=== PATIENT | male | born 1965 | race Caucasian/White ===

== ENCOUNTER → 2020-09-12 11:13 | Outpatient (BNVA) | payer BC, SELFPAY | PROVIDERS: Visit Provider Nurse Practitioner Family | DX: N39.0 Urinary tract infection, site not specified (principal) | CPT/HCPCS: 80053; 81003; 87077; 87086; 87184 ==

== ENCOUNTER → 2021-03-19 11:03 | Outpatient (BNVA) | payer BC, SELFPAY | PROVIDERS: Visit Provider Nurse Practitioner Family | DX: S16.1XXA Strain of muscle, fascia and tendon at neck level, initial encounter (principal); R30.0 Dysuria; J01.90 Acute sinusitis, unspecified; B96.89 Other specified bacterial agents as the cause of diseases classified elsewhere; R73.09 Other abnormal glucose; R53.83 Other fatigue; Z12.5 Encounter for screening for malignant neoplasm of prostate; E78.2 Mixed hyperlipidemia; N39.0 Urinary tract infection, site not specified; X58.XXXA Exposure to other specified factors, initial encounter | CPT/HCPCS: 81003 ==

== ENCOUNTER → 2021-03-21 08:09 | Outpatient (BNVA) | payer BC, SELFPAY | PROVIDERS: PCP Nurse Practitioner Family; Visit Provider Nurse Practitioner Family | DX: E78.2 Mixed hyperlipidemia (principal); R73.09 Other abnormal glucose; E55.9 Vitamin D deficiency, unspecified; R53.83 Other fatigue; Z12.5 Encounter for screening for malignant neoplasm of prostate | CPT/HCPCS: 80053; 80061; 81003; 82306; 83036; 84439; 84443; 85025; G0103 ==

== ENCOUNTER 2021-12-15 11:29 | Outpatient (CLI) | payer BC, SELFPAY ==
[2021-12-15 12:09] LABS: Basophils % 0.3 %; Eosinophils # 0.1 10^3/uL (0.0-0.8); Hematocrit 46.7 % (42.0-52.0); Lymphocytes # 1.5 10^3/uL (0.8-4.8); Lymphocytes % 25.2 %; Mean Corpuscular HGB Conc 34.3 g/dL (30.0-36.0); Mean Corpuscular Hemoglobin 29.9 pg (28.0-34.0); Mean Corpuscular Volume 87.1 fl (80-94); Mean Platelet Volume 9.6 fL (7.4-10.4); Monocytes # 0.3 10^3/uL (0.2-0.9); Monocytes % 4.4 %; Neutrophils # 4.14 10^3/uL (1.8-7.7); Neutrophils % 67.8 %; Nucleated Red Blood Cells % 0 %; Platelet Count 282 10^3/cmm (130-400); Red Blood Count 5.36 10^6/uL (4.1-5.3); Red Cell Distribution Width 12.4 % (12.1-15.1); White Blood Count 6.1 10^3/uL (4.0-10.0)
[2021-12-15 12:26] LABS: Alanine Aminotransferase 29 U/L (0-41); Albumin Level 4.6 g/dL (3.5-5.2); Alkaline Phosphatase 104 IU/L (40-130); Anion Gap 14.4 (5-19); Aspartate Amino Transferase 21 U/L (0-40); Blood Urea Nitrogen 13 mg/dL (6-20); C Reactive Protein 21.7 mg/L (0.0-4.9); Calcium 9.6 mg/dL (8.5-10.5); Carbon Dioxide 24 mmol/L (22-29); Chloride 100 mmol/L (98-107); Globulin 3.5 g/dL (1.3-4.6); Glomerular Filtration Rate 99.3 mL/min (90-130); Glucose 107 mg/dL (65-115); Osmolality Calculated 279 mOsm/kg (285-295); Potassium 4.4 mmol/L (3.5-5.1); Sodium 134 mmol/L (136-145); Total Bilirubin 0.6 mg/dL (0.15-1.2); Total Protein 8.1 g/dL (6.6-8.7); Uric Acid 6.1 mg/dL (3.4-7.0)
[2021-12-17 16:17] LABS: Anti-Nuclear Antibody Pattern Nuclear, Homogeneous; Anti-Nuclear Antibody Screen POSITIVE (NEGATIVE)
[2021-12-22 15:18] LABS: Lyme AB Screen <0.90 index
[2021-12-24 16:33] LABS: Francisella Tularensis DA 1:40 titer
== END 2021-12-15 11:30 | disposition home or self-care (01) ==
LOC: LAB 11:40
PROVIDERS: PCP Nurse Practitioner Family; Visit Provider Nurse Practitioner Family
DX: I10 Essential (primary) hypertension (principal); M25.50 Pain in unspecified joint
CPT/HCPCS: 80053; 84550; 85025; 86000; 86038; 86140; 86431; 86618; 86666; 86757

== ENCOUNTER 2022-01-01 14:18 | Outpatient (CLI) | payer BC, SELFPAY ==
--- NOTE | 2022-01-01 14:31 | XR_ITS ---
WS: [email or web address] Left hand, 2 views, 01/01/2022 Clinical Data: R76.8 - Other specified abnormal immunological findings i... Comparison: None. Findings: No fractures or dislocations are seen. The soft tissues are unremarkable. The joint spaces are normal No periarticular demineralization or calcifications are seen. XR/XR hand LT 2V [id number] Impression: Negative left hand.
--- NOTE | 2022-01-01 14:31 | XR_ITS ---
WS: [email or web address] Right hand, 2 views, 01/01/2022 Clinical Data: R76.8 - Other specified abnormal immunological findings i... Comparison: None. Findings: No fractures or dislocations are seen. The soft tissues are unremarkable. There is osteoa rthritis of the right first MCP joint. Periarticular demineralization or calcifications are not seen. XR/XR hand RT 2V [id number] Impression: 1. 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 2. Otherwise negative right hand.
--- NOTE | 2022-01-01 14:31 | XR_ITS ---
WS: [email or web address] Sacroiliac joints, 3 views, 01/01/2022 Clinical Data: L40.9 - Psoriasis, unspecified Comparison: None. Findings: The SI joints are normal in width. No erosion, sclerosis or destruction is seen. There are no fractur es or dislocations. The adjacent visualized pelvis and hips are unremarkable. XR/XR sacroiliac jts m 3V [id number] Impression: Negative SI joints.
== END 2022-01-01 14:19 | disposition home or self-care (01) ==
LOC: RAD 14:20
PROVIDERS: PCP Nurse Practitioner Family; Visit Provider Internal Medicine
DX: R76.8 Other specified abnormal immunological findings in serum (principal); L40.9 Psoriasis, unspecified; M19.041 Primary osteoarthritis, right hand
CPT/HCPCS: 72202; 73120; 81001; 82550; 82565; 83516; 84443; 85651; 86140; 86160; 86162; 86200; 86235; 86255; 86376; 86431; 86480; 86704; 86803; 87340

== ENCOUNTER 2022-01-08 15:15 | Outpatient (CLI) | payer BC, SELFPAY ==
--- NOTE | 2022-01-08 15:43 | XR_ITS ---
WS: [email or web address] Chest 2 views, 01/09/2022 Clinical Data: R05.9 - Cough, unspecified Comparison: None. Findings: No nodules, masses or effusions are seen. The heart is normal. The pulmonary vascularity is not increased. No pneumonia or pneumothorax is seen. XR/XR chest 2V* [id number] Impression: Negative chest.
[2022-01-08 16:18] LABS: Basophils % 0.4 %; Eosinophils % 0.1 %; Hematocrit 44.8 % (42.0-52.0); Lymphocytes # 1.1 10^3/uL (0.8-4.8); Lymphocytes % 16.2 %; Mean Corpuscular HGB Conc 33.5 g/dL (30.0-36.0); Mean Corpuscular Hemoglobin 29.4 pg (28.0-34.0); Mean Corpuscular Volume 87.7 fl (80-94); Mean Platelet Volume 10.2 fL (7.4-10.4); Monocytes # 0.3 10^3/uL (0.2-0.9); Neutrophils % 78.3 %; Nucleated Red Blood Cells % 0 %; Platelet Count 160 10^3/cmm (130-400); Red Blood Count 5.11 10^6/uL (4.1-5.3); Red Cell Distribution Width 12.5 % (12.1-15.1); White Blood Count 6.8 10^3/uL (4.0-10.0)
[2022-01-08 17:10] LABS: Alanine Aminotransferase 30 U/L (0-41); Albumin Level 4.1 g/dL (3.5-5.2); Alkaline Phosphatase 80 IU/L (40-130); Anion Gap 19.3 (5-19); Aspartate Amino Transferase 17 U/L (0-40); Blood Urea Nitrogen 25 mg/dL (6-20); Calcium 9.6 mg/dL (8.5-10.5); Carbon Dioxide 22 mmol/L (22-29); Chloride 98 mmol/L (98-107); Globulin 3.2 g/dL (1.3-4.6); Glomerular Filtration Rate 68.8 mL/min (90-130); Glucose 260 mg/dL (65-115); Osmolality Calculated 293 mOsm/kg (285-295); Potassium 4.3 mmol/L (3.5-5.1); Sodium 135 mmol/L (136-145); Total Bilirubin 0.6 mg/dL (0.15-1.2); Total Protein 7.3 g/dL (6.6-8.7)
== END 2022-01-08 15:16 | disposition home or self-care (01) ==
PROVIDERS: PCP Nurse Practitioner Family; Visit Provider Nurse Practitioner Family
DX: R50.9 Fever, unspecified (principal); R05.9 Cough, unspecified
CPT/HCPCS: 36415; 71046; 80053; 81000; 85025; 87086

== ENCOUNTER 2022-01-08 21:26 | Emergency (ER) | payer BC, SELFPAY ==
[2022-01-08 21:35] VITALS: BP 114/80; PULSE 101; RESP 22; TEMP 36.9; O2SAT 95; BMI 27.9
--- NOTE | 2022-01-08 21:55 | ED_ITS ---
HPI - Fever General: Chief Complaint: Fever Stated Complaint: Fever\Joint Locking Up Time Seen by Provider: 01/08/22 21:40 Source: patient Mode of arrival: ambulatory Limitations: no limitations History of Present Illness: 56-year-old male who states he has been having intermittent fevers over the last 6 to 7 days. Currently being worked up for rheumatology disease he had recently had a positive LOIS and states that the painter and decorator last week told him he thought he may have polymyalgia rheumatica. He states he is currently on a steroid taper from his joint pain his hands have been improving he had x-rays of the hands and hips last week they were normal had a chest x-ray today, blood work today from his PCP for his ongoing fever and its all normal he states that tonight he spiked fever 102 is afebrile here. He denies any cough states he has generalized body pain denies headache currently. Associated symptoms: Reports extremity pain; Deny abdominal pain, chest pain, diarrhea, dysuria, headache(s), nausea or vomiting Review of Systems Const: Reports: fever(s) and body aches Eyes: Denies: blurry vision or eye discomfort ENMT: Denies: throat pain or dental pain Card: Denies: chest pain Resp: Denies: dyspnea GI: Denies: abdominal pain, nausea, vomiting or diarrhea : Denies: dysuria Musc: Reports: extremity pain, joint pain and joint swelling Skin/Breast: Denies: rash Neuro: Denies: headache(s) Psych: Denies: depression Chuckie/Lymph: Denies: easy bruising All/Imm: Denies: urticaria PFSH ED PFSH: Medical History Acute bacterial sinusitis Bacterial conjunctivitis Chronic conjunctivitis Elevated hemoglobin A1c Fatigue H/O herpes labialis H/O tularemia Mixed hyperlipidemia Neck strain Prostate cancer screening Urinary tract infection Vision changes Vitamin D deficiency Family History Mother Lupus Other CAD (coronary artery disease) Cancer Diabetes Heart attack Denies family history of Rheumatoid arthritis Hyperlipidemia Chronic kidney disease (CKD) Hypertension Stroke Social History Smoking and tobacco status: never smoked Alcohol intake: never History of recent travel: No Physical Exam Const: COMMON NORMALS: no acute distress, patient oriented x3 and healthy appearing HENMT: COMMON NORMALS: normocephalic and atraumatic HEAD & SCALP: normocephalic and atraumatic Eye: COMMON NORMALS: Equal, round and reactive pupils present and EOMs intact bilaterally PUPIL: Yes Equal, round and reactive pupils present Neck/C-Spine: COMMON NORMALS: full ROM and supple Chest: COMMONS NORMALS: normal inspection of the chest and normal palpation of entire chest wall Resp: COMMON NORMALS: normal respiratory effort, No retractions, No use of accessory muscles and clear to auscultation bilaterally AUSCULTATION: clear to auscultation bilaterally Cardio: COMMON NORMALS: regular rate, regular rhythm and No murmurs present (Cardio) RATE: regular rate RHYTHM: regular rhythm GI: COMMON NORMALS: Normal to inspection, nondistended, normoactive bowel sounds present, Soft to palpation, non-tender and no masses PALPATION: Yes Soft to palpation Extremity: COMMON NORMALS: normal to inspection and full ROM Neuro: COMMON NORMALS: patient oriented x3, moves all extremities and no focal motor deficits Psych: COMMON NORMALS: mental status grossly normal, Normal thought process present and cooperative THOUGHT PROCESS: Normal thought process present Skin: COMMON NORMALS: no rashes or lesions noted and no wounds GENERAL SKIN EXAM: no rashes or lesions noted Course Vital Signs: Vital signs: Vital Signs Temperature 98.5 F 01/08/22 21:35 Pulse Rate 101 H 01/08/22 21:35 Respiratory Rate 22 H 01/08/22 21:35 Blood Pressure 114/80 01/08/22 21:35 Pulse Oximetry 95 01/08/22 21:35 MDM - Fever Medical Decision Making Patient presents here with fever he has been afebrile here no signs of any acute infection urinalysis shows no UTI x-ray is clear blood work here is normal with normal white count he does have arthralgia is getting worked up by rheumatology currently is actually improved on the steroid. He is continue with steroid and doxycycline follow-up with his painter and decorator and PCP and return if worsening he understands agrees to plan. Lab Data : 01/08/22 22:05 01/08/22 23:13 Laboratory Results WBC 6.1 10^3/uL (4.0-10.0) 01/08/22 22:05 RBC 4.98 10^6/uL (4.1-5.3) 01/08/22 22: Hgb 15.1 g/dL (11.7-16.6) 01/08/22 22: Hct 43.3 % (42.0-52.0) 01/08/22 22: MCV 86.9 fl (80-94) 01/08/22 22: MCH 30.3 pg (28.0-34.0) 01/08/22: MCHC 34.9 g/dL (30.0-36.0) 01/08/22: RDW 12.6 % (12.1-15.1) 01/08/22: Plt Count 145 10^3/cmm (130-400) 01/08/22: MPV 10.9 fL (7.4-10.4) H 01/08/22 22: Neut % (Auto) 71.7 % 01/08/22: Lymph % (Auto) 22.6 % 01/08/22: [place] % (Auto) 3.9 % 01/08/22: Eos % (Auto) 0.3 % 01/08/22: Baso % (Auto) 0.7 % 01/08/22: Neut # (Auto) 4.38 10^3/uL (1.8-7.7) 01/08/22 22: Lymph # (Auto) 1.4 10^3/uL (0.8-4.8) 01/08/22: [place] # (Auto) 0.2 10^3/uL (0.2-0.9) 01/08/22: Eos # (Auto) 0.0 10^3/uL (0.0-0.8) 01/08/22: Baso # (Auto) 0.0 10^3/uL (0.0-0.1) 01/08/22 22: Nucleated RBC % (auto) 0 % 01/08/22 22: Nucleated RBCs # 0.0 /100WBC 01/08/22 22: Sodium 129 mmol/L (136-145) L 01/08/22 23:13 Potassium 3.8 mmol/L (3.5-5.1) 01/08/22 23:13 Chloride 98 mmol/L (98-107) 01/08/22 23:13 Carbon Dioxide 21 mmol/L (22-29) L 01/08/22 23:13 Anion Gap 13.8 (5-19) 01/08/22 23:13 BUN 25 mg/dL (6-20) H 01/08/22 23:13 Creatinine 1.2 mg/dL (0.7-1.2) 01/08/22 23:13 GFR Calculation 62.2 mL/min (90-130) L 01/08/22 23:13 Glucose 182 mg/dL (65-115) H 01/08/22 23:13 Calculated Osmolality 277 mOsm/kg (285-295) L 01/08/22 23:13 Calcium 8.6 mg/dL (8.5-10.5) 01/08/22 23:13 Total Bilirubin 0.6 mg/dL (0.15-1.2) 01/08/22 23:13 AST 14 U/L (0-40) 01/08/22 23:13 ALT 23 U/L (0-41) 01/08/22 23:13 Alkaline Phosphatase 65 IU/L (40-130) 01/08/22 23:13 Total Protein 6.1 g/dL (6.6-8.7) L 01/08/22 23:13 Albumin 3.4 g/dL (3.5-5.2) L 01/08/22 23:13 Globulin 2.7 g/dL (1.3-4.6) 01/08/22 23:13 Urine Color Yellow (Yellow) 01/08/22 23:34 Urine Appearance Clear (CLEAR) 01/08/22 23:34 Urine pH 5 (5-7) 01/08/22 23:34 Ur Specific [place] 1.025 (1.005-1.030) 01/08/22 23:34 Urine Protein Neg (Negative) 01/08/22 23:34 Urine Glucose (UA) Norm (Normal) 01/08/22 23:34 Urine Ketones Negative (Negative) 01/08/22 23:34 Urine Blood 2+ (Negative) H 01/08/22 23:34 Urine Nitrate Negative (Negative) 01/08/22 23:34 Urine Bilirubin 1+ (Negative) H 01/08/22 23:34 Urine Urobilinogen 1 mg/dL (Negative) H 01/08/22 23:34 Ur Leukocyte Esterase Negative (Negative) 01/08/22 23:34 Urine RBC 5-10 /hpf (0-2) H 01/08/22 23:34 Urine WBC 0-4 /hpf (0-5) H 01/08/22 23:34 Ur Squamous Epith Cells 0-4 /hpf (0-5) H 01/08/22 23:34 Amorphous Sediment 1+ /hpf 01/08/22 23:34 Urine Bacteria Trace /hpf (NONE) 01/08/22 23:34 Hyaline Casts 0-4 /lpf H 01/08/22 23:34 Urine Mucus 3+ /hpf 01/08/22 23:34 Discharge Plan Discharge Patient Disposition: Home Clinical Impression: Fever, Arthralgia Condition: Stable Prescriptions: No Action omega-3 fatty acids [Fish Oil Concentrate] 1,000 mg capsule 1,000 mg PO DAILY 0RF lidocaine HCl [Xylocaine] 10 mg/mL (1 %) solution 1 ml IM ONCE Qty: 1 0RF prednisone 10 mg tablet 10 mg PO BID 7 Days Qty: 14 0RF prednisone 5 mg tablet See Rx Instructions PO DAILY Qty: 120 2RF Rx Instructions: 17.5 mg po qday x 7 days, then 15mg po qday PO daily; ibuprofen 800 mg tablet 800 mg PO Q8H PRN (Reason: pain) 30 Days Qty: 60 2RF nflodhqy-risxpvwayq-nibh-HC 3.5-400-10,000 mg-unit/g-1% ointment 1 applic ophthalmic (eye) .at hs Qty: 3.5 0RF neomycin-polymyxin B-dexameth 3.5mg/mL-10,000 unit/mL-0.1 % drops,suspension 1 drp ophthalmic (eye) TID 7 Days Qty: 5 0RF doxycycline hyclate 100 mg tablet 100 mg PO BID 10 Days Qty: 20 0RF Discharge Orders: Discharge ED (Routine); Ordered 01/08/22 Ordered By: Triston Dixon Referrals: Janessa Ye FNP [Primary Care Provider] - 1-3 days Discharge Diet: Advance as tolerated Discharge Activity: Resume usual activity Patient Instructions: Fever in Adults (ED) Coding Level of Care Code ED Turnaround Planner for Jorgeg Fwd Exam Comprehensive
[2022-01-08 22:23] LABS: Basophils % 0.7 %; Eosinophils % 0.3 %; Hematocrit 43.3 % (42.0-52.0); Hemoglobin 15.1 g/dL (11.7-16.6); Lymphocytes # 1.4 10^3/uL (0.8-4.8); Lymphocytes % 22.6 %; Mean Corpuscular HGB Conc 34.9 g/dL (30.0-36.0); Mean Corpuscular Hemoglobin 30.3 pg (28.0-34.0); Mean Corpuscular Volume 86.9 fl (80-94); Mean Platelet Volume 10.9 fL (7.4-10.4); Monocytes # 0.2 10^3/uL (0.2-0.9); Monocytes % 3.9 %; Neutrophils # 4.38 10^3/uL (1.8-7.7); Neutrophils % 71.7 %; Nucleated Red Blood Cells % 0 %; Platelet Count 145 10^3/cmm (130-400); Red Blood Count 4.98 10^6/uL (4.1-5.3); Red Cell Distribution Width 12.6 % (12.1-15.1); White Blood Count 6.1 10^3/uL (4.0-10.0)
[2022-01-08] MEDS: sodium chloride 0.9% 1,000 ML 999 ML IV (22:39)
[2022-01-08] MEDS: ketorolac 30 mg/mL INJ IVP (22:39)
[2022-01-08 23:37] LABS: Alanine Aminotransferase 23 U/L (0-41); Albumin Level 3.4 g/dL (3.5-5.2); Alkaline Phosphatase 65 IU/L (40-130); Anion Gap 13.8 (5-19); Aspartate Amino Transferase 14 U/L (0-40); Blood Urea Nitrogen 25 mg/dL (6-20); Calcium 8.6 mg/dL (8.5-10.5); Carbon Dioxide 21 mmol/L (22-29); Chloride 98 mmol/L (98-107); Globulin 2.7 g/dL (1.3-4.6); Glomerular Filtration Rate 62.2 mL/min (90-130); Glucose 182 mg/dL (65-115); Osmolality Calculated 277 mOsm/kg (285-295); Potassium 3.8 mmol/L (3.5-5.1); Sodium 129 mmol/L (136-145); Total Bilirubin 0.6 mg/dL (0.15-1.2); Total Protein 6.1 g/dL (6.6-8.7)
[2022-01-08 23:50] LABS: Add Urine Culture? No; Add Urine Microscopic? YES; Amorphous Sediment Urine 1+ /hpf; Bacteria Urine TRACE /hpf; Bilirubin Urine 1+ (Negative); Blood Urine 2+ (Negative); Glucose Urine UA Norm (Normal); Hyaline Casts Urine 0-4 /lpf; Ketones Urine Negative (Negative); Leukocyte Esterase Urine Negative (Negative); Mucus Urine 3+ /hpf; Nitrate Urine Negative (Negative); Protein Urine Neg (Negative); Specific Gravity, Urine 1.025 (1.005-1.030); Squamous Epithelial Cell Urine 0-4 /hpf (0-5); Urine Appearance Clear (CLEAR); Urine Color Yellow (Yellow); Urobilinogen Urine 1 mg/dL (Negative); WBC Urine 0-4 /hpf (0-5); pH Urine 5 (5-7)
[2022-01-09 00:15] VITALS: BP 129/87; PULSE 78; RESP 18; O2SAT 98
[2022-01-12 13:53] LABS: Lyme AB Screen <0.90 index
[2022-01-13 16:52] LABS: RMSF IGG NOT DETECTED; RMSF IGM NOT DETECTED
[2022-01-14 16:48] LABS: E. Chaffeensis AB IGG <1:64; E. Chaffeensis AB IGM <1:20
== END 2022-01-09 00:37 | disposition home or self-care (01) ==
PROVIDERS: Emergency Provider Emergency Medicine; PCP Nurse Practitioner Family
DX: R50.9 Fever, unspecified (principal); M25.50 Pain in unspecified joint; E78.5 Hyperlipidemia, unspecified; Z79.52 Long term (current) use of systemic steroids; Z86.19 Personal history of other infectious and parasitic diseases
CPT/HCPCS: 36415; 80053; 81001; 85025; 86618; 86666; 86757; 87040; 96361; 96374; 99284; J1885; J7030

== ENCOUNTER → 2022-01-14 10:09 | Outpatient (BNVA) | payer BC, SELFPAY | PROVIDERS: PCP Nurse Practitioner Family; Visit Provider Nurse Practitioner Family | DX: R73.09 Other abnormal glucose (principal); R76.8 Other specified abnormal immunological findings in serum | CPT/HCPCS: 83036 ==

== ENCOUNTER 2022-02-03 11:21 | Outpatient (CLI) | payer BC, SELFPAY ==
--- NOTE | 2022-02-03 12:00 | US_ITS ---
WS: [email or web address] RENAL ULTRASOUND HISTORY: R31.9 - Hematuria, unspecified COMPARISON: None available. TECHNIQUE: 2-D and color Doppler imaging of the kidney submitted. Right kidney: 13.6 cm x 6.5 cm x 5.9 cm. Mildly enlarged kidney. Numerous cystic masses are identified. The largest cyst from the mid kidney m easures 7.2 x 5.4 x 8.7 cm. No solid mass identified. No obstruction. Left kidney: 11.9 cm x 5.1 cm x 5.4 cm. Normal echogenicity with no hydronephrosis or mass. Aorta: Normal. Urinary Bladder: Normal distention. Prostate gland is mildly heterogeneous with central calcifications. Prostate measures 4.3 x 3.7 x 4.0 cm. US/US renal BI* [id number] IMPRESSION: 1. No solid renal mass or obstruction. 2. Several large cysts associated with the RIGHT kidney. The largest measures 7.2 x 5.4 x 8.7 cm. 3. Heterogeneous prostate gland with central calcification.
== END 2022-02-03 11:22 | disposition home or self-care (01) ==
PROVIDERS: PCP Nurse Practitioner Family; Visit Provider Nurse Practitioner Family
DX: R31.9 Hematuria, unspecified (principal); N40.0 Benign prostatic hyperplasia without lower urinary tract symptoms; Q61.02 Congenital multiple renal cysts
CPT/HCPCS: 76770

== ENCOUNTER 2022-02-13 11:22 | Outpatient (CLI) | payer BC, SELFPAY ==
--- NOTE | 2022-02-13 11:44 | XR_ITS ---
WS: [email or web address] Chest 2 views, 02/13/2022 Clinical Data: R05.9 - Cough, unspecified Comparison: PA and lateral chest, 01/08/2022. Findings: No nodules, masses or effusions are seen. The heart is normal. The pulmonary vascularity is not increased. No pneumonia or pneumothorax is seen. The patient has a poor inspiratory effort and t here is bibasilar atelectasis. The aortic arch and descending thoracic aorta show mild tortuosity. XR/XR chest 2V* [id number] Impression: Atherosclerosis and bibasilar atelectasis.
[2022-02-13 12:19] LABS: Basophils % 0.4 %; Eosinophils % 0.3 %; Hematocrit 40.9 % (42.0-52.0); Hemoglobin 13.2 g/dL (11.7-16.6); Lymphocytes # 1.2 10^3/uL (0.8-4.8); Lymphocytes % 15.9 %; Mean Corpuscular HGB Conc 32.3 g/dL (30.0-36.0); Mean Corpuscular Hemoglobin 28.3 pg (28.0-34.0); Mean Corpuscular Volume 87.6 fl (80-94); Mean Platelet Volume 9.6 fL (7.4-10.4); Monocytes # 0.2 10^3/uL (0.2-0.9); Monocytes % 3.3 %; Neutrophils # 5.78 10^3/uL (1.8-7.7); Neutrophils % 79.3 %; Nucleated Red Blood Cells % 0 %; Platelet Count 346 10^3/cmm (130-400); Red Blood Count 4.67 10^6/uL (4.1-5.3); Red Cell Distribution Width 12.2 % (12.1-15.1); White Blood Count 7.3 10^3/uL (4.0-10.0)
[2022-02-13 12:48] LABS: D Dimer 3.48 ug/mIFEU (0-0.59)
[2022-02-13 12:57] LABS: Alanine Aminotransferase 17 U/L (0-41); Albumin Level 3.9 g/dL (3.5-5.2); Alkaline Phosphatase 83 IU/L (40-130); Anion Gap 17.5 (5-19); Aspartate Amino Transferase 15 U/L (0-40); Blood Urea Nitrogen 16 mg/dL (6-20); Calcium 9.5 mg/dL (8.5-10.5); Carbon Dioxide 25 mmol/L (22-29); Chloride 100 mmol/L (98-107); Creatine Phosphokinase 42 U/L (39-308); Globulin 4.1 g/dL (1.3-4.6); Glomerular Filtration Rate 98.9 mL/min (90-130); Glucose 166 mg/dL (65-115); Osmolality Calculated 291 mOsm/kg (285-295); Potassium 4.5 mmol/L (3.5-5.1); Sodium 138 mmol/L (136-145); Total Bilirubin 0.5 mg/dL (0.15-1.2)
[2022-02-13 13:47] LABS: Add Urine Culture? No; Add Urine Microscopic? YES; Bacteria Urine TRACE /hpf; Bilirubin Urine Neg (Negative); Blood Urine 2+ (Negative); Glucose Urine UA Norm (Normal); Ketones Urine Negative (Negative); Leukocyte Esterase Urine Negative (Negative); Nitrate Urine Negative (Negative); Protein Urine Neg (Negative); RBC Urine 0-4 /hpf (0-2); Specific Gravity, Urine 1.005 (1.005-1.030); Squamous Epithelial Cell Urine 0-4 /hpf (0-5); Urine Appearance Clear (CLEAR); Urine Color Yellow (Yellow); Urobilinogen Urine Norm (Negative); WBC Urine 0-4 /hpf (0-5); pH Urine 5 (5-7)
== END 2022-02-13 11:23 | disposition home or self-care (01) ==
PROVIDERS: Internal Medicine; PCP Nurse Practitioner Family; Visit Provider Nurse Practitioner Family
DX: R05.9 Cough, unspecified (principal); R76.8 Other specified abnormal immunological findings in serum; R07.81 Pleurodynia; J98.11 Atelectasis; I70.90 Unspecified atherosclerosis
CPT/HCPCS: 36415; 71046; 80053; 81001; 82550; 85025; 85378

== ENCOUNTER 2022-02-13 13:34 | Emergency (ER) | payer BC, SELFPAY ==
[2022-02-13 14:03] VITALS: BP 142/83; PULSE 90; RESP 16; TEMP 37; O2SAT 94; BMI 27.1
--- NOTE | 2022-02-13 15:33 | CTR_ITS ---
PROCEDURE INFORMATION: Exam: CTA Chest With Contrast Exam date and time: 02/13/2022 4:13 PM Age: 57 years old Clinical indication: Shortness of breath; Patient HX: C/O so w L sided cp since Wednesday - elev d-dimer; Additional info: Chest pain, elevated d dimer at pcp office today TECHNIQUE: Imaging protocol: Computed tomographic angiography of the chest with contrast. 3D rendering (Not supervised by radiologist): MIP and/or 3D reconstructed images were created by the technologist. Radiation optimization: All CT scans at this facility use at least one of these dose optimization techniques: automated exposure control; mA and/or kV adjustment per patient size (includes targeted exams where dose is matched to clinical indication); or iterative reconstruction. Contrast material: OMNI 350; Contrast volume: 62 ml; Contrast route: INTRAVENOUS (IV); COMPARISON: CR XR chest 2V* [id number] 02/13/2022 11:48 AM RADIATION DOSE METRICS: Total DLP (mGy-cm): 515.16 FINDINGS: Pulmonary arteries: Normal. No pulmonary emboli. Aorta: Unremarkable. No aortic aneurysm. No aortic dissection. Lungs: Patchy bilateral airspace infiltrates. Pleural spaces: Trace bilateral pleural effusions. Heart: Coronary artery atherosclerotic calcifications. Lymph nodes: Scattered prominent subcentimeter short axis diameter mediastinal lymph nodes, nonspecific. Bones/joints: Unremarkable. No acute fracture. Soft tissues: Unremarkable. CT/CT angio chest PE protcl [id number] IMPRESSION: 1. Negative for pulmonary embolus. 2. Scattered prominent subcentimeter short axis diameter mediastinal lymph nodes, nonspecific. 3. Coronary artery atherosclerotic calcifications. 4. Patchy bilateral airspace infiltrates. 5. Trace bilateral pleural effusions.
--- NOTE | 2022-02-13 15:36 | ED_ITS ---
HPI - SOB/Dyspnea General: Chief Complaint: Shortness of Breath/Dyspnea Stated Complaint: abnormal labs Time Seen by Provider: 02/13/22 15:11 History of Present Illness: HPI Narrative: Patient comes in with right middle back pain that he states is been there for the past 4 days. States he has been coughing for about a week and developed this pain in his left lower ribs that migrated to his right middle back. Was seen in clinic today where blood work was done including a D-dimer which was elevated. Patient was then sent to the emergency department secondary to the elevation of the D-dimer. Associated symptoms: Deny abdominal pain, chest pain, fever(s), nausea, palpitations, polyuria or vomiting Review of Systems Const: Denies: fever(s) or body aches Eyes: Denies: change in vision or blurry vision ENMT: Denies: throat pain or odynophagia Card: Denies: chest pain or palpitations Resp: Reports: non-productive cough; Denies: dyspnea GI: Denies: abdominal pain, nausea or vomiting : Denies: flank pain or dysuria Musc: Reports: back pain; Denies: neck pain Skin/Breast: Denies: rash or pruritus Neuro: Denies: headache(s) or numbness in extremities Psych: Denies: anxiety or change in appetite Endo: Denies: polyuria or excessive sweating PFSH ED PFSH: Medical History Acute bacterial sinusitis Bacterial conjunctivitis Chronic conjunctivitis Elevated hemoglobin A1c Fatigue H/O herpes labialis H/O tularemia Mixed hyperlipidemia Neck strain Prostate cancer screening Urinary tract infection Vision changes Vitamin D deficiency Family History Mother Lupus Other CAD (coronary artery disease) Cancer Diabetes Heart attack Denies family history of Rheumatoid arthritis Hyperlipidemia Chronic kidney disease (CKD) Hypertension Stroke Social History Smoking and tobacco status: never smoked Alcohol intake: never History of recent travel: No Physical Exam Const: COMMON NORMALS: no acute distress, patient oriented x3, healthy appearing and alert HENMT: COMMON NORMALS: normocephalic and atraumatic HEAD & SCALP: normocephalic and atraumatic Eye: COMMON NORMALS: Equal, round and reactive pupils present and EOMs intact bilaterally PUPIL: Yes Equal, round and reactive pupils present Neck/C-Spine: COMMON NORMALS: full ROM and supple Resp: COMMON NORMALS: normal respiratory effort, No retractions and No use of accessory muscles Cardio: COMMON NORMALS: regular rate and regular rhythm RATE: regular rate RHYTHM: regular rhythm GI: COMMON NORMALS: Normal to inspection, nondistended, normoactive bowel sounds present, Soft to palpation and non-tender PALPATION: Yes Soft to palpation Back/Pelvis: COMMON NORMALS: thoracic and lumbar spine normal to inspection and no thoracic nor lumbar tenderness OTHER: Tenderness palpation of his right middle back lateral to midline with palpable muscle tightness. Extremity: COMMON NORMALS: normal to inspection and full ROM Neuro: COMMON NORMALS: patient oriented x3 SENSORIUM/ORIENTATION: Yes alert Psych: COMMON NORMALS: mental status grossly normal and cooperative Skin: COMMON NORMALS: no rashes or lesions noted and no wounds GENERAL SKIN EXAM: no rashes or lesions noted Course Vital Signs: Vital signs: Vital Signs Temperature 98.6 F 02/13/22 14:03 Pulse Rate 90 02/13/22 14:03 Respiratory Rate 16 02/13/22 14:03 Blood Pressure 142/83 02/13/22 14:03 Pulse Oximetry 94 02/13/22 14:03 MDM - SOB/Dyspnea Medical Decision Making Patient comes in with right middle back pain that he states is been there for the past 4 days. States he has been coughing for about a week and developed this pain in his left lower ribs that migrated to his right middle back. Was seen in clinic today where blood work was done including a D-dimer which was elevated. Patient was then sent to the emergency department secondary to the elevation of the D-dimer. On physical exam he has palpable tenderness to palpation with muscle tightness in his right middle back consistent with a muscle spasm. Will check CTA chest, give Toradol IV, and reassess. On reassessment I talked to the patient about the test results. We will start him on antibiotics for possible pneumonia and discharged with precautions return for worsening or changing symptoms. Lab Data Labs/Radiology: Radiology Impressions Chest CTA 02/13/22 15:33 IMPRESSION: 1. Negative for pulmonary embolus. 2. Scattered prominent subcentimeter short axis diameter mediastinal lymph nodes, nonspecific. 3. Coronary artery atherosclerotic calcifications. 4. Patchy bilateral airspace infiltrates. 5. Trace bilateral pleural effusions. Discharge Plan Discharge Patient Disposition: Home Clinical Impression: CAP (community acquired pneumonia) Condition: Stable Prescriptions: New azithromycin 250 mg tablet See Rx Instructions .ROUTE .COMPLEX Qty: 6 0RF Rx Instructions: For 250 mg dose pack: take 500 mg today (day 1), then 250 mg for 4 days (days 2-5) No Action omega-3 fatty acids [Fish Oil Concentrate] 1,000 mg capsule 1,000 mg PO DAILY 0RF prednisone 5 mg tablet See Rx Instructions PO DAILY Qty: 120 2RF Rx Instructions: 17.5 mg po qday x 7 days, then 15mg po qday PO daily; hydroxychloroquine 200 mg tablet 200 mg PO BID Qty: 60 3RF (DME) Blood Glucose Test Strip See Rx Instructions .Route Qty: 50 2RF Rx Instructions: As directed (DME) blood-glucose meter [Blood Glucose Monitoring] Kit See Rx Instructions .ROUTE .MEDSUPPLY Qty: 1 0RF Rx Instructions: As directed doxycycline monohydrate 100 mg tablet 100 mg PO BID 10 Days Qty: 20 0RF ibuprofen 800 mg tablet 800 mg PO Q8H PRN (Reason: pain) 30 Days Qty: 60 2RF cholecalciferol (vitamin D3) 25 mcg (1,000 unit) Capsule 25 mcg PO DAILY 0RF Discharge Orders: Discharge ED (Routine); Ordered 02/13/22 Ordered By: Justus Asencio Referrals: Janessa Ye FNP [Primary Care Provider] - Coding Level of Care Code ED Color Depositing Machine Tender for Jorgeg Fwd Exam Comprehensive
--- NOTE | 2022-02-13 15:41 | PC.NURSE ---
PT PLACED ON CONTINUOUS SPO2, NIBP, CM.
[2022-02-13] MEDS: ketorolac 30 mg/mL INJ IVP (15:45)
[2022-02-13] MEDS: iohexol 350 mg/mL 100 mL Btl IV (16:20)
[2022-02-13 16:30] VITALS: BP 136/86; PULSE 77; RESP 19; O2SAT 94
[2022-02-13 17:00] VITALS: BP 126/76; PULSE 69; RESP 21; O2SAT 95
[2022-02-13 17:30] VITALS: BP 150/85; PULSE 75; RESP 21; O2SAT 96
== END 2022-02-13 17:52 | disposition home or self-care (01) ==
PROVIDERS: Emergency Provider Emergency Medicine; PCP Nurse Practitioner Family
DX: J18.9 Pneumonia, unspecified organism (principal)
CPT/HCPCS: 71275; 96374; 99284; J1885; Q9967

== ENCOUNTER → 2022-02-23 11:53 | Outpatient (BNVA) | payer BC, SELFPAY | PROVIDERS: PCP Nurse Practitioner Family; Visit Provider Nurse Practitioner Family | DX: M62.838 Other muscle spasm (principal); R31.9 Hematuria, unspecified; J18.9 Pneumonia, unspecified organism | CPT/HCPCS: 81000 ==

== ENCOUNTER → 2022-02-25 14:44 | Outpatient (BNVA) | payer BC, SELFPAY | PROVIDERS: PCP Nurse Practitioner Family; Visit Provider Urology | DX: Q61.3 Polycystic kidney, unspecified (principal); R31.9 Hematuria, unspecified; R31.29 Other microscopic hematuria | CPT/HCPCS: 81003; 87086; 88112 ==

== ENCOUNTER 2022-03-04 12:35 | Outpatient (CLI) | payer BC, SELFPAY ==
--- NOTE | 2022-03-04 13:02 | XRR_ITS ---
PROCEDURE INFORMATION: Exam: XR Chest Exam date and time: 03/04/2022 1:17 PM Age: 57 years old Clinical indication: Recovering from walking pneumonia. Pain in rib cage from coughing. TECHNIQUE: Imaging protocol: XR of the chest. Views: 2 views. COMPARISON: CR XR chest 2V* [id number] 02/13/2022 11:48 AM FINDINGS: Lungs: There are foci of subsegmental atelectasis or scarring in the lower chest bilaterally. There is mild peribronchial wall thickening. Pleural spaces: Possible trace pleural effusions. No pneumothorax. Heart/Mediastinum: The cardiac silhouette is unchanged. No gross evidence of pneumomediastinum. Bones/joints: No gross fracture. XR/XR chest 2V* [id number] IMPRESSION: 1. Cardiomegaly with possible trace pleural effusions. 2. Mild peribronchial wall thickening; query viral infection/bronchitis, chronic bronchitis and/or asthma.
== END 2022-03-04 12:36 | disposition home or self-care (01) ==
LOC: RAD 12:37
PROVIDERS: PCP Nurse Practitioner Family; Visit Provider Nurse Practitioner Family
DX: J18.9 Pneumonia, unspecified organism (principal)
CPT/HCPCS: 71046

== ENCOUNTER 2022-03-25 21:06 | Emergency (ER) | payer BC, SELFPAY ==
[2022-03-25 21:15] VITALS: BP 138/87; PULSE 124; RESP 24; TEMP 37.8; O2SAT 96; BMI 3807.9
--- NOTE | 2022-03-25 21:20 | XRR_ITS ---
PROCEDURE INFORMATION: Exam: XR Chest Exam date and time: 03/25/2022 9:28 PM Age: 57 years old Clinical indication: Chest wall pain; Additional info: Chest pain TECHNIQUE: Imaging protocol: XR of the chest. Views: 1 view. COMPARISON: CR XR chest 2V* [id number] 03/04/2022 1:17 PM FINDINGS: Lungs: Linear bibasilar scarring. No consolidation. Pleural spaces: Unremarkable. No pleural effusion. No pneumothorax. Heart/Mediastinum: Unremarkable. No cardiomegaly. Bones/joints: Unremarkable. XR/XR chest 1V portable [id number] IMPRESSION: No acute findings.
[2022-03-25 21:30] VITALS: BP 162/100; PULSE 123; RESP 26; O2SAT 95
[2022-03-25 21:44] LABS: Basophils % 0.2 %; Eosinophils # 0.1 10^3/uL (0.0-0.8); Eosinophils % 0.8 %; Hematocrit 39.9 % (42.0-52.0); Lymphocytes # 1.7 10^3/uL (0.8-4.8); Lymphocytes % 19.3 %; Mean Corpuscular HGB Conc 32.6 g/dL (30.0-36.0); Mean Platelet Volume 9.6 fL (7.4-10.4); Monocytes # 0.6 10^3/uL (0.2-0.9); Monocytes % 6.8 %; Neutrophils % 72.3 %; Nucleated Red Blood Cells % 0 %; Platelet Count 298 10^3/cmm (130-400); Red Blood Count 4.81 10^6/uL (4.1-5.3); Red Cell Distribution Width 13.1 % (12.1-15.1); White Blood Count 8.7 10^3/uL (4.0-10.0)
--- NOTE | 2022-03-25 21:54 | CTR_ITS ---
PROCEDURE INFORMATION: Exam: CTA Chest With Contrast Exam date and time: 03/25/2022 10:09 PM Age: 57 years old Clinical indication: Abdominal pain; Right; Chest wall pain; Patient HX: Patient tachycardic with fever and cough. C/O anterior chest wall and RT flank pain. States had pneumonia three weeks ago. Diagnosed with lupus three months ago. ; Additional info: Fever, tachycardia TECHNIQUE: Imaging protocol: Computed tomographic angiography of the chest with contrast. 3D rendering (Not supervised by radiologist): MIP and/or 3D reconstructed images were created by the technologist. Radiation optimization: All CT scans at this facility use at least one of these dose optimization techniques: automated exposure control; mA and/or kV adjustment per patient size (includes targeted exams where dose is matched to clinical indication); or iterative reconstruction. Contrast material: OMNI 350; Contrast volume: 100 ml; Contrast route: INTRAVENOUS (IV); COMPARISON: CT angio chest PE protcl [id number] 02/13/2022 4:13 PM RADIATION DOSE METRICS: Total DLP (mGy-cm): 2119.02 FINDINGS: Pulmonary arteries: There is no evidence of filling defects within the pulmonary arterial circulation to suggest pulmonary embolism. Due to timing of contrast the pulmonary veins are non-opacified. Aorta: There is no thoracic aortic aneurysm or dissection. Lungs: There is some relaxation atelectasis of the right lower lobe. There are areas of linear subsegmental atelectasis in both lung bases. There is small area of consolidation posterior right lower lobe which could represent some pneumonia. Pleural spaces: There are small bilateral pleural effusions more on the right than on the left. Heart: Unremarkable. No cardiomegaly. No pericardial effusion. Lymph nodes: There are calcified subcarinal lymph nodes in keeping with old granulomatous disease. There is paratracheal, subcarinal, and mild hilar adenopathy not significantly changed from 02/13/2022. Bones/joints: Unremarkable. No acute fracture. Soft tissues: Unremarkable. PROCEDURE INFORMATION: Exam: CT Abdomen And Pelvis With Contrast Exam date and time: 03/25/2022 10:09 PM Age: 57 years old Clinical indication: Abdominal pain; Right; Chest wall pain; Patient HX: Patient tachycardic with fever and cough. C/O anterior chest wall and RT flank pain. States had pneumonia three weeks ago. Diagnosed with lupus three months ago. ; Additional info: Fever, tachycardia TECHNIQUE: Imaging protocol: Computed tomography of the abdomen and pelvis with contrast. Radiation optimization: All CT scans at this facility use at least one of these dose optimization techniques: automated exposure control; mA and/or kV adjustment per patient size (includes targeted exams where dose is matched to clinical indication); or iterative reconstruction. Contrast material: OMNI 350; Contrast volume: 100 ml; Contrast route: INTRAVENOUS (IV); COMPARISON: US renal BI* [id number] 02/03/2022 11:53 AM RADIATION DOSE METRICS: Total DLP (mGy-cm): 2119.02 FINDINGS: Liver: There is no focal abnormality within the liver. Gallbladder and bile ducts: Normal. No calcified stones. No ductal dilation. Pancreas: The pancreas is normal. Spleen: The spleen is normal. Adrenal glands: The adrenal glands are normal. Kidneys and ureters: There are multiple large simple cyst lower pole right kidney corresponding with findings on previous ultrasound. The left kidney is normal. There is no evidence of hydronephrosis. Stomach and bowel: There is no evidence of colitis/diverticulitis. There is no evidence of intestinal obstruction. Appendix: A normal appendix is identified. Intraperitoneal space: There is no evidence of free intraperitoneal fluid. Vasculature: Unremarkable. No abdominal aortic aneurysm. Lymph nodes: There are small periaortic lymph nodes. There is no adenopathy. Urinary bladder: Unremarkable as visualized. Reproductive: Unremarkable as visualized. Bones/joints: Unremarkable. No acute fracture. Soft tissues: There are small bilateral inguinal hernias containing only fat. CT/CT angio chest w abd pel w con IMPRESSION: 1. Pleural effusions and atelectasis. 2. No evidence of pulmonary embolism. 3. Possible right lower lobe pneumonia. IMPRESSION: No acute findings in the abdomen or pelvis. COMMENTS: Consistent with the [employer]'s Incidental Findings Committee white paper (J Am Jose Luis Radiol 2018): Any incidental renal lesion less than 1 cm or classified as too small to characterize, or any incidental cystic renal lesion characterized as simple-appearing, is likely benign. No follow-up imaging is recommended for these lesions per consensus recommendations based on imaging criteria.
[2022-03-25] MEDS: sodium chloride 0.9% 1,000 ML 999 ML IV (21:55)
[2022-03-25] MEDS: acetaminophen 500 mg Tablet 1000 MG PO (21:56)
[2022-03-25 22:00] VITALS: BP 129/92; PULSE 120; RESP 22; O2SAT 94
[2022-03-25 22:03] LABS: Anion Gap 15.2 (5-19); Blood Urea Nitrogen 16 mg/dL (6-20); C Reactive Protein 186.9 mg/L (0.0-4.9); Calcium 9.1 mg/dL (8.5-10.5); Carbon Dioxide 25 mmol/L (22-29); Chloride 98 mmol/L (98-107); Glomerular Filtration Rate 68.5 mL/min (90-130); Glucose 156 mg/dL (65-115); Osmolality Calculated 282 mOsm/kg (285-295); Potassium 4.2 mmol/L (3.5-5.1); Sodium 134 mmol/L (136-145)
[2022-03-25 22:09] LABS: Procalcitonin 0.15 ng/mL (0-0.5)
--- NOTE | 2022-03-25 22:10 | W.ED.GENADLT ---
HPI - General Adult General: Chief complaint: Shortness of Breath/Dyspnea Stated complaint: Fever\SOB Time Seen by Provider: 03/25/22 21:20 History of Present Illness: Patient is a 57-year-old male with a history of bilateral pulmonary infiltrates, lupus oon prednisone and hydroxychloroquin presenting to the emergency room for concerns of bilateral chest and back pain with fever and cough x1 day. Patient tells me that he thinks he may be coming down with pneumonia again similar to last time. Patient was initially seen on 02/13/2022 2 for concerns of pneumonia. She received antibiotics and completed course of Z-Bruno. Since discharge home,Patient has been doing well up until 03/24/2022 which point time, patient developed fever and worsening cough with sputum. Patient reports pleuritic chest pain and pain worse with inspiration since onset of pain yesterday night. Patient denies any lower extremity swelling, abdominal complaints, nausea/vomiting, diarrhea, melena/hematochezia. Onset:1 day ago Duration:1 day Location:home Severity:moderate Associated symptoms: Reports chest pain and dyspnea; Deny nausea, rash, palpitations or vomiting Review of Systems Const: Reports: fever(s) and chills Eyes: Denies: change in vision ENMT: Denies: mouth pain Card: Reports: chest pain; Denies: palpitations Resp: Reports: dyspnea and non-productive cough GI: Denies: abdominal pain, nausea, vomiting or diarrhea : Denies: dysuria Musc: Denies: extremity pain Skin/Breast: Denies: rash or new lesions Neuro: Denies: weakness in extremities Psych: Reports: other (Normal mood) Chuckie/Lymph: Denies: easy bruising PFSH ED PFSH: Medical History Acute bacterial sinusitis Bacterial conjunctivitis Chronic conjunctivitis Elevated hemoglobin A1c Fatigue H/O herpes labialis H/O tularemia Mixed hyperlipidemia Neck strain Prostate cancer screening Urinary tract infection Vision changes Vitamin D deficiency Family History Mother , AT AGE 39 Lupus Other CAD (coronary artery disease) Cancer Diabetes Heart attack Denies family history of Rheumatoid arthritis Hyperlipidemia Chronic kidney disease (CKD) Hypertension Stroke Social History Smoking and tobacco status: never smoked Alcohol intake: never Marital status: Current occupational status: employed 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 History of recent travel: No Physical Exam Const: COMMON NORMALS: alert HENMT: COMMON NORMALS: atraumatic HEAD & SCALP: atraumatic MOUTH: moist mucous membranes not abnormal Eye: COMMON NORMALS: EOMs intact bilaterally and conjunctivae normal CONJUNCTIVA: Yes conjunctivae normal Neck/C-Spine: COMMON NORMALS: full ROM and supple Resp: COMMON NORMALS: normal respiratory effort OTHER: +mild coarse breath sounds b/l Cardio: COMMON NORMALS: regular rate RATE: regular rate GI: COMMON NORMALS: Soft to palpation and non-tender PALPATION: Yes Soft to palpation Extremity: COMMON NORMALS: full ROM Neuro: SENSORIUM/ORIENTATION: Yes alert MOTOR EXAM: No Abnormal motor strength present and Other motor observations present (no focal motor deficits) Psych: COMMON NORMALS: speech normal SPEECH: Yes normal speech MOOD & AFFECT: Yes euthymic mood Course Vital Signs: Vital signs: Vital Signs Temperature 100.1 F H 03/25/22 21:15 Pulse Rate 120 H 03/25/22 22:00 Respiratory Rate 22 H 03/25/22 22:00 Blood Pressure 129/92 03/25/22 22:00 Pulse Oximetry 94 03/25/22 22:00 MDM - General Adult Medical Decision Making 57-year-old male with history of SLE on hydroxychloroquine and prednisone, prior diagnosis of PNA p/w new onset of fever, cough, bilateral chest pain. Patient says the symptoms are yesterday 9. Patient on arrival has a fever of 100.4 degrees. Patient received Tylenol and IVF with improvement heart rate and fever. Patient continues to be satting well on room air. X-ray chest clear. CTA chest showed right lower quadrant pneumonia. Suspect complicated pneumonia. Patient received doxycycline and Augmentin. Incidental findings of kidney cysts discussed extensively with patient. Patient aware of findings Patient is instructed to follow up urgently with specialists. Rx augmentin and doxycycline for pneumonia, percocet PRN pain Disposition: Discharge. Patient counseled regarding diagnostic impression, treatment plan. Patient given ED strict return precautions to return for continuation, worsening, or development of new symptoms. Instructed to f/u w/ PCP regarding symptoms today. Patient verbalized understanding. Lab Data : 03/25/22 21:35 03/25/22 21:35 Radiology Impressions Chest X-Ray 03/25/22 21:20 IMPRESSION: No acute findings. Chest/Abdomen/Pelvis CT 03/25/22 21:54 IMPRESSION: 1. Pleural effusions and atelectasis. 2. No evidence of pulmonary embolism. 3. Possible right lower lobe pneumonia. IMPRESSION: No acute findings in the abdomen or pelvis. COMMENTS: Consistent with the [employer]'s Incidental Findings Committee white paper (J Am Jose Luis Radiol 2018): Any incidental renal lesion less than 1 cm or classified as too small to characterize, or any incidental cystic renal lesion characterized as simple-appearing, is likely benign. No follow-up imaging is recommended for these lesions per consensus recommendations based on imaging criteria. ADDENDUM: 03/25/22 4450 Addendum: Findings were discussed with NILAM TORREZ at 03/25/2022 11:38 PM CDT. Laboratory Results WBC 8.7 10^3/uL (4.0-10.0) 03/25/22 21:35 RBC 4.81 10^6/uL (4.1-5.3) 03/25/22 21:35 Hgb 13.0 g/dL (11.7-16.6) 03/25/22 21:35 Hct 39.9 % (42.0-52.0) L 03/25/22 21:35 MCV 83.0 fl (80-94) 03/25/22 21:35 MCH 27.0 pg (28.0-34.0) L 03/25/22 21:35 MCHC 32.6 g/dL (30.0-36.0) 03/25/22 21:35 RDW 13.1 % (12.1-15.1) 03/25/22 21:35 Plt Count 298 10^3/cmm (130-400) 03/25/22 21:35 MPV 9.6 fL (7.4-10.4) 03/25/22 21:35 Neut % (Auto) 72.3 % 03/25/22 21:35 Lymph % (Auto) 19.3 % 03/25/22 21:35 [place] % (Auto) 6.8 % 03/25/22 21:35 Eos % (Auto) 0.8 % 03/25/22 21:35 Baso % (Auto) 0.2 % 03/25/22 21:35 Neut # (Auto) 6.30 10^3/uL (1.8-7.7) 03/25/22 21: Lymph # (Auto) 1.7 10^3/uL (0.8-4.8) 03/25/22 21:35 [place] # (Auto) 0.6 10^3/uL (0.2-0.9) 03/25/22 21:35 Eos # (Auto) 0.1 10^3/uL (0.0-0.8) 03/25/22 21:35 Baso # (Auto) 0.0 10^3/uL (0.0-0.1) 03/25/22 21: Nucleated RBC % (auto) 0 % 03/25/22 21: Nucleated RBCs # 0.0 /100WBC 03/25/22 21: Sodium 134 mmol/L (136-145) L 03/25/22 21: Potassium 4.2 mmol/L (3.5-5.1) 03/25/22 21: Chloride 98 mmol/L (98-107) 03/25/22 21: Carbon Dioxide 25 mmol/L (22-29) 03/25/22: Anion Gap 15.2 (5-19) 03/25/22 21: BUN 16 mg/dL (6-20) 03/25/22: Creatinine 1.1 mg/dL (0.7-1.2) 03/25/22 21: GFR Calculation 68.5 mL/min (90-130) L 03/25/22 21:35 Glucose 156 mg/dL (65-115) H 03/25/22 21: Calculated Osmolality 282 mOsm/kg (285-295) L 03/25/22: Calcium 9.1 mg/dL (8.5-10.5) 03/25/22 21:35 C-Reactive Protein 186.9 mg/L (0.0-4.9) H 03/25/22 21:35 Procalcitonin 0.15 ng/mL (0-0.5) 03/25/22 21:35 Influenza Type A Ag Negative (Negative) 03/25/22 22:35 Influenza Type B Ag Negative (Negative) 03/25/22 22:35 Imaging Data Other Imaging: Radiologist's impression: [address] [address] [address] Scan Report Signed with Addenda Patient: Gibson Brian Unit #: [id number] : 1965 Age/Sex: 57 / M ADM Date: 03/25/22 Loc: ER Room/Bed: Attending Dr: Ordering Provider/Ordering MD: Nilam Torrez MD Date of Service: 03/25/22 Procedure(s): CT angio chest w abd pel w con Accession Number(s): [id number] Report Number: [id number]/CT angio chest w abd pel w con Addendum: Findings were discussed with NILAM TORREZ at 03/25/2022 11:38 PM CDT. ? Addendum Dictated By: ?Nakul Damon Addendum Signed By: ?Nakul Damon Signed Date/Time: 03/25/22 2339 Addendum Cosigned By: ? PROCEDURE INFORMATION: Exam: CTA Chest With Contrast Exam date and time: 03/25/2022 10:09 PM Age: 57 years old Clinical indication: Abdominal pain; Right; Chest wall pain; Patient HX: Patient tachycardic with fever and cough. C/O anterior chest wall and RT flank pain. States had pneumonia three weeks ago. Diagnosed with lupus three months ago. ; Additional info: Fever, tachycardia TECHNIQUE: Imaging protocol: Computed tomographic angiography of the chest with contrast. 3D rendering (Not supervised by radiologist): MIP and/or 3D reconstructed images were created by the technologist. Radiation optimization: All CT scans at this facility use at least one of these dose optimization techniques: automated exposure control; mA and/or kV adjustment per patient size (includes targeted exams where dose is matched to clinical indication); or iterative reconstruction. Contrast material: OMNI 350; Contrast volume: 100 ml; Contrast route: INTRAVENOUS (IV);? COMPARISON: CT angio chest PE protcl [id number] 02/13/2022 4:13 PM RADIATION DOSE METRICS: Total DLP (mGy-cm): FINDINGS: Pulmonary arteries: There is no evidence of filling defects within the pulmonary arterial circulation to suggest pulmonary embolism. Due to timing of contrast the pulmonary veins are non-opacified. Aorta: There is no thoracic aortic aneurysm or dissection. Lungs: There is some relaxation atelectasis of the right lower lobe. There are areas of linear subsegmental atelectasis in both lung bases. There is small area of consolidation posterior right lower lobe which could represent some pneumonia. Pleural spaces: There are small bilateral pleural effusions more on the right than on the left. Heart: Unremarkable. No cardiomegaly. No pericardial effusion. Lymph nodes: There are calcified subcarinal lymph nodes in keeping with old granulomatous disease. There is paratracheal, subcarinal, and mild hilar adenopathy not significantly changed from 02/13/2022. Bones/joints: Unremarkable. No acute fracture. Soft tissues: Unremarkable. PROCEDURE INFORMATION: Exam: CT Abdomen And Pelvis With Contrast Exam date and time: 03/25/2022 10:09 PM Age: 57 years old Clinical indication: Abdominal pain; Right; Chest wall pain; Patient HX: Patient tachycardic with fever and cough. C/O anterior chest wall and RT flank pain. States had pneumonia three weeks ago. Diagnosed with lupus three months ago. ; Additional info: Fever, tachycardia TECHNIQUE: Imaging protocol: Computed tomography of the abdomen and pelvis with contrast. Radiation optimization: All CT scans at this facility use at least one of these dose optimization techniques: automated exposure control; mA and/or kV adjustment per patient size (includes targeted exams where dose is matched to clinical indication); or iterative reconstruction. Contrast material: OMNI 350; Contrast volume: 100 ml; Contrast route: INTRAVENOUS (IV);? COMPARISON: US renal BI* [id number] 02/03/2022 11:53 AM RADIATION DOSE METRICS: Total DLP (mGy-cm): FINDINGS: Liver: There is no focal abnormality within the liver. Gallbladder and bile ducts: Normal. No calcified stones. No ductal dilation. Pancreas: The pancreas is normal. Spleen: The spleen is normal. Adrenal glands: The adrenal glands are normal. Kidneys and ureters: There are multiple large simple cyst lower pole right kidney corresponding with findings on previous ultrasound. The left kidney is normal. There is no evidence of hydronephrosis. Stomach and bowel: There is no evidence of colitis/diverticulitis. There is no evidence of intestinal obstruction. Appendix: A normal appendix is identified. Intraperitoneal space: There is no evidence of free intraperitoneal fluid. Vasculature: Unremarkable. No abdominal aortic aneurysm. Lymph nodes: There are small periaortic lymph nodes. There is no adenopathy. Urinary bladder: Unremarkable as visualized. Reproductive: Unremarkable as visualized. Bones/joints: Unremarkable. No acute fracture. Soft tissues:? There are small bilateral inguinal hernias containing only fat. CT/CT angio chest w abd pel w con IMPRESSION: 1. Pleural effusions and atelectasis. 2. No evidence of pulmonary embolism. 3. Possible right lower lobe pneumonia. ? ? IMPRESSION: No acute findings in the abdomen or pelvis. ? COMMENTS: Consistent with the [employer]'s Incidental Findings Committee white paper (J Am Jose Luis Radiol 2018): Any incidental renal lesion less than 1 cm or classified as too small to characterize, or any incidental cystic renal lesion characterized as simple-appearing, is likely benign. No follow-up imaging is recommended for these lesions per consensus recommendations based on imaging criteria. ? Dictated By: Nakul Damon Signed By: Nakul Damon Signed Date/Time: 03/25/222323 DD/ [address] [address] XRay Report Signed Patient: Gibson Brian Unit #: [id number] : 1965 Age/Sex: 57 / M ADM Date: 03/25/22 Loc: ER Room/Bed: Attending Dr: Ordering Provider/Ordering MD: Nilam Torrez MD Date of Service: 03/25/22 Procedure(s): XR chest 1V portable [id number] Accession Number(s): [id number] Report Number: [id number] PROCEDURE INFORMATION: Exam: XR Chest Exam date and time: 03/25/2022 9:28 PM Age: 57 years old Clinical indication: Chest wall pain; Additional info: Chest pain TECHNIQUE: Imaging protocol: XR of the chest. Views: 1 view. COMPARISON: CR XR chest 2V* [id number] 03/04/2022 1:17 PM FINDINGS: Lungs: Linear bibasilar scarring. No consolidation. Pleural spaces: Unremarkable. No pleural effusion. No pneumothorax. Heart/Mediastinum: Unremarkable. No cardiomegaly. Bones/joints: Unremarkable. XR/XR chest 1V portable [id number] IMPRESSION: No acute findings. ? Dictated By: Tim Juarez DO Signed By: Tim Juarez DO Signed Date/Time: 03/25/222152 DD/ 27 Discharge Plan Discharge Patient Disposition: Home Clinical Impression: Cough, Fever, Acute dyspnea, Pneumonia Condition: Stable Prescriptions: New acetaminophen 500 mg tablet 500 mg PO Q6H PRN (Reason: pain) 5 Days Qty: 20 0RF amoxicillin-pot clavulanate 875-125 mg tablet 1 tab PO BID 10 Days Qty: 20 0RF doxycycline hyclate 100 mg capsule 100 mg PO BID 10 Days Qty: 20 0RF Percocet 5-325 mg tablet 1 tab PO Q8H PRN (Reason: pain) Qty: 10 0RF No Action omega-3 fatty acids [Fish Oil Concentrate] 1,000 mg capsule 1,000 mg PO DAILY 0RF prednisone 5 mg tablet See Rx Instructions PO DAILY Qty: 120 2RF Rx Instructions: 17.5 mg po qday x 7 days, then 15mg po qday PO daily; hydroxychloroquine 200 mg tablet 200 mg PO BID Qty: 60 3RF (DME) Blood Glucose Test Strip See Rx Instructions .Route Qty: 50 2RF Rx Instructions: As directed (DME) blood-glucose meter [Blood Glucose Monitoring] Kit See Rx Instructions .ROUTE .MEDSUPPLY Qty: 1 0RF Rx Instructions: As directed prednisone 1 mg tablet See Rx Instructions PO DAILY Qty: 120 2RF Rx Instructions: part of taper, take 9mg po qday x 1 month, then reduce by 1mg per month PO daily; cyclobenzaprine 10 mg tablet 10 mg PO .at hs Qty: 30 0RF ibuprofen 800 mg tablet 800 mg PO Q8H PRN (Reason: pain) 30 Days Qty: 60 2RF cholecalciferol (vitamin D3) 25 mcg (1,000 unit) Capsule 25 mcg PO DAILY 0RF Discharge Orders: Discharge ED (Routine); Ordered 03/25/22 Ordered By: Nilam Torrez Referrals: Janessa Ye FNP [Primary Care Provider] - Discharge Diet: Advance as tolerated Discharge Activity: Increase activity as tolerated Patient Instructions: Bacterial Pneumonia (ED) Activity Restrictions/Additional Instructions: Come back to the emergency room if your symptoms worsen, have any shortness of breath, fever/chills, dehydration, inability tolerate food or drinks, any difficulty breathing, or any new or concerning complaints. Please return the emergency room if your pulse ox reads less than 88%. Stand Alone Forms: Work/School Release Coding Level of Care Code ED Hearing Consultant for Cristhian Fwd Exam Comprehensive
[2022-03-25] MEDS: iohexol 350 mg/mL 100 mL Btl IV (22:26)
[2022-03-25 22:30] VITALS: BP 157/100; PULSE 112; RESP 35; O2SAT 96
[2022-03-25 23:00] VITALS: BP 147/103; PULSE 114; RESP 27; O2SAT 94
[2022-03-25 23:10] LABS: Influenza A by IFA Negative (Negative); Influenza B by IFA Negative (Negative)
[2022-03-25 23:30] VITALS: BP 148/94; PULSE 104; RESP 24; O2SAT 94
[2022-03-26] VITALS: BP 129/81; PULSE 109; RESP 27; O2SAT 96
[2022-03-26 00:04] VITALS: RESP 22; O2SAT 96
[2022-03-26] MEDS: morphine 4 mg/mL SDV 1 mL IVP (00:04)
[2022-03-26] MEDS: amoxicillin-clav 875-125 mg Tablet 1 TAB PO (00:04)
[2022-03-26] MEDS: doxycycline 100 mg Tablet PO (00:04)
[2022-03-26 00:29] LABS: Adenovirus Not Detected (NOT DETECT); Chlamydia Pneumoniae Not Detected (NOT DETECT); Coronavirus 229E,HKU1,NL63,OC4 Not Detected (NOT DETECT); Human Metapneumovirus Not Detected (NOT DETECT); Human Rhinovirus/Enterovirus Not Detected (NOT DETECT); Influenza A Not Detected (NOT DETECT); Influenza A H1 Not Detected (NOT DETECT); Influenza A H1-2009 Not Detected (NOT DETECT); Influenza A H3 Not Detected (NOT DETECT); Influenza B Not Detected (NOT DETECT); Mycoplasma Pneumoniae Not Detected (NOT DETECT); Parainfluenza Virus Type 1 Not Detected (NOT DETECT); Parainfluenza Virus Type 2 Not Detected (NOT DETECT); Parainfluenza Virus Type 3 Not Detected (NOT DETECT); Parainfluenza Virus Type 4 Not Detected (NOT DETECT); Respiratory Syncytial Virus A Not Detected (NOT DETECT); Respiratory Syncytial Virus B Not Detected (NOT DETECT); SARS-COV-2 Not Detected (NOT DETECT)
[2022-03-26 00:30] VITALS: BP 119/78; PULSE 93; RESP 22; O2SAT 94
[2022-03-26 00:55] VITALS: BP 107/77; PULSE 88; RESP 21; O2SAT 94
== END 2022-03-26 00:55 | disposition home or self-care (01) ==
PROVIDERS: Emergency Provider Emergency Medicine; PCP Nurse Practitioner Family
DX: J18.9 Pneumonia, unspecified organism (principal); R06.00 Dyspnea, unspecified; R50.9 Fever, unspecified; R05.9 Cough, unspecified; E55.9 Vitamin D deficiency, unspecified; E78.2 Mixed hyperlipidemia
CPT/HCPCS: 71045; 71275; 74177; 80048; 84145; 85025; 86140; 87635; 87804; 96361; 96374; 99284; J2270; J7030; Q9967

== ENCOUNTER 2022-03-27 07:18 | Outpatient (CLI) | payer BC, SELFPAY ==
--- NOTE | 2022-03-27 07:45 | USCV_ITS ---
Brian Kipzane Age: 57 Gender: M : 1965 Exam Date: 03/27/2022 07:53 Ordering Phys: Anders Galloway MD Technologist: Exam Location: [facility] – [place] Indication: chest pain BP: 125 / 70 HR: 75 Rhythm: Sinus Technical Quality: Adequate MEASUREMENTS (Male / Female) Normal Values 2D ECHO LV Diastolic Diameter PLAX 4.2 cm 4.2 - 5.9 / 3.9 - 5.3 cm LV Systolic Diameter PLAX 2.5 cm IVS Diastolic Thickness 1.0 cm 0.6 - 1.0 / 0.6 - 0.9 cm IVS Systolic Thickness 1.2 cm LVPW Diastolic Thickness 1.3 cm 0.6 - 1.0 / 0.6 - 0.9 cm LVPW Systolic Thickness 1.5 cm LVOT Diameter 2.1 cm LV Ejection Fraction 2D Teich 70.8 % LV Ejection Fraction MOD 2C 70.1 % LV Ejection Fraction 2C AL 70.5 % LA Diameter 3.7 cm IVC Diameter 1.7 cm M-MODE LV Diastolic Diameter MM 5.6 cm 4.2 - 5.9 / 3.9 - 5.3 cm LV Systolic Diameter MM 3.6 cm LV Ejection Fraction MM Teich 63.8 % IVS Diastolic Thickness MM 1.0 cm 0.6 - 1.0 / 0.6 - 0.9 cm IVS Systolic Thickness MM 1.3 cm LVPW Diastolic Thickness MM 1.2 cm 0.6 - 1.0 / 0.6 - 0.9 cm LVPW Systolic Thickness MM 1.7 cm RV Diastolic Diameter MM 1.3 cm Aortic Annulus Diameter 3.6 cm LA Ao Ratio MM 1.2 MV E Point Septal Separation 1.0 cm DOPPLER AV Peak Velocity 144.0 cm/s LVOT Peak Velocity 104.0 cm/s AV Area Cont Eq vti 2.7 cm squared AV Area Cont Eq pk 2.5 cm squared MV Area PHT 5.0 cm squared Mitral E to A Ratio 1.0 MV E' Velocity 42.5 cm/s Mitral E to MV E' Ratio 6.0 Mitral E to LV E' Lateral Ratio 4.4 Mitral E to LV E' Septal Ratio 9.5 TR Peak Velocity 141.3 cm/s TR Peak Gradient 8.0 mmHg TV Peak E Velocity 95.0 cm/s Right Atrial Pressure 3.0 mmHg Pulmonary Artery Systolic Pressu 11.0 mmHg PV Peak Velocity 121.0 cm/s FINDINGS Left Ventricle Normal left ventricular size. LV systolic function is normal with EF of 55-60%.No regional wall motion abnormalities. Diastolic function is normal Right Ventricle The right ventricle is normal in size and function. Right Atrium The right atrium is normal in size. Left Atrium The left atrium is normal in size. Mitral Valve Structurally normal mitral valve without significant stenosis or prolapse. There is mild mitral regurgitation. Aortic Valve Structurally normal aortic valve without significant sclerosis or stenosis. There is mild aortic regurgitation. Tricuspid Valve Structurally normal tricuspid valve without significant stenosis. Trace tricuspid regurgitation. Insufficient TR jet to calculate RVSP Pulmonic Valve Grossly normal Pericardium Normal pericardium without effusion. Aorta Normal ascending aorta dimension. IVC CONCLUSIONS LV systolic function is normal with EF of 55-60% Diastolic function is normal Mild aortic regurgitation Mild mitral regurgitation Trace tricuspid regurgitation No comparison studies are available Viet Green MD (Electronically Signed) Final Date: 08 April 2022 13:43 S
== END 2022-03-27 07:19 | disposition home or self-care (01) ==
PROVIDERS: PCP Nurse Practitioner Family; Visit Provider Internal Medicine
DX: I08.3 Combined rheumatic disorders of mitral, aortic and tricuspid valves (principal); R07.9 Chest pain, unspecified
CPT/HCPCS: 93306

== ENCOUNTER 2022-04-10 10:57 | Outpatient (CLI) | payer BC, SELFPAY ==
[2022-04-10 11:35] LABS: Basophils # 0.1 10^3/uL (0.0-0.1); Basophils % 0.7 %; Eosinophils # 0.1 10^3/uL (0.0-0.8); Eosinophils % 0.7 %; Hematocrit 42.7 % (42.0-52.0); Hemoglobin 14.1 g/dL (11.7-16.6); Lymphocytes # 1.4 10^3/uL (0.8-4.8); Lymphocytes % 15.9 %; Mean Corpuscular Hemoglobin 26.8 pg (28.0-34.0); Mean Platelet Volume 10.1 fL (7.4-10.4); Monocytes # 0.3 10^3/uL (0.2-0.9); Monocytes % 3.7 %; Neutrophils # 6.65 10^3/uL (1.8-7.7); Neutrophils % 77.9 %; Nucleated Red Blood Cells % 0 %; Platelet Count 333 10^3/cmm (130-400); Red Blood Count 5.27 10^6/uL (4.1-5.3); Red Cell Distribution Width 13.8 % (12.1-15.1); White Blood Count 8.5 10^3/uL (4.0-10.0)
[2022-04-10 11:41] LABS: Erythrocyte Sedimentation Rate 21 mm/hr (0-10)
[2022-04-10 11:51] LABS: Alanine Aminotransferase 16 U/L (0-41); Albumin Level 4.3 g/dL (3.5-5.2); Alkaline Phosphatase 84 IU/L (40-130); Anion Gap 15.3 (5-19); Aspartate Amino Transferase 14 U/L (0-40); Blood Urea Nitrogen 17 mg/dL (6-20); C Reactive Protein 5.3 mg/L (0.0-4.9); Calcium 9.1 mg/dL (8.5-10.5); Carbon Dioxide 23 mmol/L (22-29); Chloride 99 mmol/L (98-107); Globulin 3.7 g/dL (1.3-4.6); Glomerular Filtration Rate 86.4 mL/min (90-130); Glucose 173 mg/dL (65-115); Osmolality Calculated 282 mOsm/kg (285-295); Potassium 4.3 mmol/L (3.5-5.1); Sodium 133 mmol/L (136-145); Total Bilirubin 0.3 mg/dL (0.15-1.2)
[2022-04-14 21:47] LABS: Glucose-6-Phosphate Dehydrogen 17.4 U/g Hgb (7.0-20.5)
== END 2022-04-10 10:58 | disposition home or self-care (01) ==
PROVIDERS: PCP Nurse Practitioner Family; Visit Provider Internal Medicine
DX: I51.7 Cardiomegaly (principal); J18.9 Pneumonia, unspecified organism; M32.9 Systemic lupus erythematosus, unspecified
CPT/HCPCS: 80053; 81003; 82657; 82784; 82955; 83516; 85025; 85651; 86036; 86140

== ENCOUNTER 2022-05-14 09:29 | Outpatient (CLI) | payer BC, SELFPAY ==
--- NOTE | 2022-05-14 10:00 | CT_ITS ---
WS: [id number] CT CHEST WITHOUT INTRAVENOUS CONTRAST HISTORY: assess resolution of pneumonia TECHNIQUE: Contiguous 5 mm axial imaging performed on the thorax. Coronal and sagittal reformats are submitted. All CT scans at [facility] use at least one of these dose optimization techniques: automated exposure control; mA and/or kV adjustment per patient size (includes targeted exams where dose is matched to clinical indication); or iterative reconstruction. CONTRAST: None DLP: 669.60 mGy.cm COMPARISON: 03/25/2022 Lungs and central airway: Much better aeration as compared to the prior CT. There are persistent area s of linear atelectasis and bandlike opacifications in the RIGHT middle and lower lobes and also in t he LEFT lower lobe and towards the lingula. Overall these have moderately improved since the prior ex am. No pulmonary nodule or mass. Less atelectasis at the RIGHT lung base. Pleura: Mild pleural thickening bilaterally in the lower lung king with mild improvement. Heart and pericardium: Mild cardiomegaly. Mediastinum and jolene: Mediastinal and hilar lymph nodes are numerous and mildly prominent but also de creased in size since the prior study. The RIGHT hilar lymph nodes cannot be adequately evaluated wit hout IV contrast. Benign subcarinal calcified lymph node. Vessels: Normal size aortic and pulmonary artery. No coronary artery calcifications. Chest wall and lower neck: No soft tissue masses. Upper abdomen: Small hiatal hernia. Osseous structures: No destructive process. CT/CT chest wo con [id number] IMPRESSION: 1. Moderate improvement in aeration bilaterally. Improved aeration with less a telectasis and less pleural thickening at the bases. No residual pneumonia. 2. Mildly prominent mediastinal and hilar lymph nodes. Better visualized on th e prior study as it was performed with contrast. No obvious enlargement or adve rse change on today's exam.
== END 2022-05-14 09:30 | disposition home or self-care (01) ==
LOC: RAD 09:29
PROVIDERS: PCP Nurse Practitioner Family; Visit Provider Internal Medicine Pulmonary Disease
DX: J18.9 Pneumonia, unspecified organism (principal)
CPT/HCPCS: 71250

== ENCOUNTER 2022-05-25 10:44 | Outpatient (CLI) | payer BC, SELFPAY ==
[2022-05-25 11:32] LABS: Add Urine Microscopic? NO; Charge for UA Resulting for Rev
[2022-05-25 11:39] LABS: Bilirubin Urine Neg (Negative); Blood Urine Neg (Negative); Glucose Urine UA Norm (Normal); Ketones Urine Negative (Negative); Leukocyte Esterase Urine Negative (Negative); Nitrate Urine Negative (Negative); Protein Urine Neg (Negative); Urine Appearance Clear (CLEAR); Urine Color Yellow (Yellow); Urobilinogen Urine Norm (Negative); pH Urine 5 (5-7)
[2022-05-25 11:40] LABS: Basophils # 0.1 10^3/uL (0.0-0.1); Basophils % 0.9 %; Eosinophils % 0.4 %; Hematocrit 45.7 % (42.0-52.0); Hemoglobin 14.7 g/dL (11.7-16.6); Lymphocytes # 1.3 10^3/uL (0.8-4.8); Lymphocytes % 18.9 %; Mean Corpuscular HGB Conc 32.2 g/dL (30.0-36.0); Mean Corpuscular Hemoglobin 26.8 pg (28.0-34.0); Mean Corpuscular Volume 83.4 fl (80-94); Mean Platelet Volume 9.8 fL (7.4-10.4); Monocytes # 0.3 10^3/uL (0.2-0.9); Monocytes % 4.5 %; Neutrophils # 4.98 10^3/uL (1.8-7.7); Neutrophils % 74.7 %; Nucleated Red Blood Cells % 0 %; Platelet Count 284 10^3/cmm (130-400); Red Blood Count 5.48 10^6/uL (4.1-5.3); Red Cell Distribution Width 14.2 % (12.1-15.1); White Blood Count 6.7 10^3/uL (4.0-10.0)
[2022-05-25 11:51] LABS: Erythrocyte Sedimentation Rate 8 mm/hr (0-10)
[2022-05-25 12:06] LABS: Alanine Aminotransferase 16 U/L (0-41); Albumin Level 4.4 g/dL (3.5-5.2); Alkaline Phosphatase 76 IU/L (40-130); Anion Gap 13.7 (5-19); Aspartate Amino Transferase 12 U/L (0-40); Blood Urea Nitrogen 16 mg/dL (6-20); Calcium 9.5 mg/dL (8.5-10.5); Carbon Dioxide 25 mmol/L (22-29); Chloride 102 mmol/L (98-107); Globulin 2.8 g/dL (1.3-4.6); Glomerular Filtration Rate 86.4 mL/min (90-130); Glucose 122 mg/dL (65-115); Immunoglobulin IGA 223 mg/dL (70-400); Immunoglobulin IGG 1241 mg/dL (700-1600); Immunoglobulin IGM 182 mg/dL (40-230); Osmolality Calculated 284 mOsm/kg (285-295); Potassium 4.7 mmol/L (3.5-5.1); Sodium 136 mmol/L (136-145); Total Bilirubin 0.2 mg/dL (0.15-1.2); Total Protein 7.2 g/dL (6.6-8.7)
== END 2022-05-25 10:45 | disposition home or self-care (01) ==
PROVIDERS: PCP Nurse Practitioner Family; Visit Provider Internal Medicine
DX: J18.9 Pneumonia, unspecified organism (principal); M32.9 Systemic lupus erythematosus, unspecified
CPT/HCPCS: 80053; 81003; 82784; 83516; 85025; 85651; 86036; 86140

== ENCOUNTER → 2022-05-28 11:38 | Outpatient (BNVA) | payer BC, SELFPAY | PROVIDERS: PCP Nurse Practitioner Family; Visit Provider Nurse Practitioner Family | DX: E11.9 Type 2 diabetes mellitus without complications (principal); M32.9 Systemic lupus erythematosus, unspecified; J18.9 Pneumonia, unspecified organism | CPT/HCPCS: 83036; 86160 ==

== ENCOUNTER 2022-06-17 10:26 | Outpatient (CLI) | payer BC, SELFPAY ==
--- NOTE | 2022-06-17 12:47 | PFTS_ITS ---
Date of Study:06/17/22 Date of Dictation: MECHANICS: Forced vital capacity (FVC) is reduced. Forced expiratory volume in one second (FEV1) is reduced. FEV1/FVC is normal. FLOW VOLUME LOOP: Narrow. LUNG VOLUMES: Total lung capacity (TLC) is reduced. Residual volume (RV) is mildly reduced. DIFFUSING CAPACITY FOR CARBON MONOXIDE: Not measured. INTERPRETATION: The postbronchodilator spirometry is consistent with severe restriction. There is a significant postbronchodilator response. Lung volumes are consistent with severe restriction. However, the residual volume is mildly reduced. Gas exchange (DLCO) is not measured. [facility]
[2022-06-20 13:28] LABS: TPMT Activity 19
== END 2022-06-17 10:27 | disposition home or self-care (01) ==
PROVIDERS: Absent Provider Internal Medicine; PCP Nurse Practitioner Family; Visit Provider Internal Medicine Pulmonary Disease
DX: J18.9 Pneumonia, unspecified organism (principal)
CPT/HCPCS: 36415; 82657; 94060; 94618; 94726; 94729

== ENCOUNTER 2022-07-24 11:30 | Outpatient (CLI) | payer BC, SELFPAY ==
[2022-07-24 12:09] LABS: Basophils % 0.3 %; Eosinophils % 0.1 %; Hematocrit 40.6 % (42.0-52.0); Hemoglobin 13.8 g/dL (11.7-16.6); Lymphocytes % 13.6 %; Mean Corpuscular Hemoglobin 28.3 pg (28.0-34.0); Mean Corpuscular Volume 83.2 fl (80-94); Mean Platelet Volume 9.3 fL (7.4-10.4); Monocytes # 0.3 10^3/uL (0.2-0.9); Monocytes % 3.6 %; Neutrophils # 6.16 10^3/uL (1.8-7.7); Neutrophils % 81.9 %; Nucleated Red Blood Cells % 0 %; Platelet Count 262 10^3/cmm (130-400); Red Blood Count 4.88 10^6/uL (4.1-5.3); Red Cell Distribution Width 13.5 % (12.1-15.1); White Blood Count 7.5 10^3/uL (4.0-10.0)
[2022-07-24 12:22] LABS: Urine Creatinine 193 mg/dL (39-259)
[2022-07-24 12:25] LABS: Erythrocyte Sedimentation Rate 43 mm/hr (0-10)
[2022-07-24 12:27] LABS: Add Urine Culture? No; Amorphous Sediment Urine 3+ /hpf; Bacteria Urine TRACE /hpf; Bilirubin Urine Neg (Negative); Blood Urine 3+ (Negative); Glucose Urine UA Norm (Normal); Ketones Urine 1+ (Negative); Leukocyte Esterase Urine Trace (Negative); Nitrate Urine Negative (Negative); Protein Urine Trace (Negative); RBC Urine 0-4 /hpf (0-2); Specific Gravity, Urine 1.015 (1.005-1.030); Squamous Epithelial Cell Urine 0-4 /hpf (0-5); Urine Appearance Clear (CLEAR); Urine Color Yellow (Yellow); Urobilinogen Urine Norm (Negative); pH Urine 5 (5-7)
[2022-07-24 12:39] LABS: Alanine Aminotransferase 13 U/L (0-41); Alkaline Phosphatase 67 U/L (40-130); Aspartate Amino Transferase 14 U/L (0-40); Blood Urea Nitrogen 13 mg/dL (6-20); Calcium 9.5 mg/dL (8.5-10.5); Carbon Dioxide 25 mmol/L (22-29); Chloride 93 mmol/L (98-107); Globulin 3.6 g/dL (1.3-4.6); Glomerular Filtration Rate 76.5 mL/min (90-130); Glucose 119 mg/dL (65-115); Osmolality Calculated 269 mOsm/kg (285-295); Sodium 129 mmol/L (136-145); Total Bilirubin 0.8 mg/dL (0.15-1.2); Total Protein 7.6 g/dL (6.6-8.7)
--- NOTE | 2022-07-24 12:55 | XR_ITS ---
WS: [id number] Chest 2 views, 07/24/2022 Clinical Data: R05.9 - Cough, unspecified Comparison: Portable chest, 03/25/2022. Findings: No nodules, masses or effusions are seen. The heart is normal. The pulmonary vascularity is not increased. No pneumonia or pneumothorax is seen. There is minimal peripheral atelectasis in the lower lobes which has improved compared to the prior x-ray. The aortic arch and descending thoracic a isaac show mild tortuosity XR/XR chest 2V* [id number] Impression: 1. Atherosclerosis. 2. Minimal bibasilar atelectasis.
[2022-07-24 13:07] LABS: Complement C3 130 mg/dL (90-180)
[2022-07-24 13:44] LABS: Total Protein, Random Urine 40.1 mg/dL (0.0-20.0)
== END 2022-07-24 11:31 | disposition home or self-care (01) ==
PROVIDERS: PCP Nurse Practitioner Family; Visit Provider Nurse Practitioner Family
DX: R05.9 Cough, unspecified (principal); M32.9 Systemic lupus erythematosus, unspecified; I70.90 Unspecified atherosclerosis; J98.11 Atelectasis
CPT/HCPCS: 71046; 80053; 81001; 82570; 84156; 85025; 85651; 86140; 86160

== ENCOUNTER 2022-07-24 13:40 | Observation (INO) | payer BC, SELFPAY ==
[2022-07-24 13:45] VITALS: BP 124/84; PULSE 103; RESP 18; TEMP 37.6; O2SAT 95; BMI 28.5
--- NOTE | 2022-07-24 14:19 | ED_ITS ---
HPI - Nausea/Vomiting/Diarrhea General: Chief complaint: Nausea/Vomiting/Diarrhea Stated complaint: sent by rosa maria mcdaniel Time Seen by Provider: 07/24/22 14:08 Source: patient Mode of arrival: ambulatory History of Present Illness: 57-year-old male presents emergency room from an outpatient clinic. Markedly elevated CRP today. He has known history of lupus he seen rheumatology in the past. He is having systemic joint aches and joint effusions rapidly worsened to the point that he has difficult time even walking or standing because of the joint pain.Patient reported fever 104 at home although he is not had any fever here. He has had a little bit of cough and nasal drainage. MD elicited complaint: nausea, vomiting and diarrhea Onset (ago): day(s) Description of vomiting: food contents and watery Description of diarrhea: watery and semi-solid Associated nausea: Yes Associated abdominal pain: Yes Location of pain: Diffuse Pain consistency: constant Severity: severe Quality: aching Exacerbating factors: movement and exertion Relieving factors: none Associated symtoms: Reports fatigue, anorexia, malaise, myalgias, nausea and weakness; Denies altered mental status, anxiety, bloating, change in vision, chest pain, cough, diaphoresis, decreased urine output, dizziness, dysuria, epistaxis, fecal incontinence, fevers/chills, headache(s), numbness, palpitations, short of breath, syncope, tenesmus or tinnitus Review of Systems Const: Reports: fatigue and malaise; Denies: fever(s), chills or diaphoresis Eyes: Denies: change in vision ENMT: Reports: throat pain, nasal discharge and nasal congestion; Denies: tinnitus or epistaxis Card: Denies: chest pain, palpitations or syncope Resp: Denies: dyspnea, productive cough or non-productive cough GI: Reports: nausea, vomiting and diarrhea; Denies: abdominal pain, bloating or fecal incontinence : Denies: flank pain, difficulty urinating, dysuria, urinary frequency or urinary urgency Skin/Breast: Denies: rash or pruritus Neuro: Denies: headache(s) or dizziness Psych: Denies: anxiety PFS ED PFSH: Medical History Acute bacterial sinusitis Bacterial conjunctivitis Chronic conjunctivitis Elevated hemoglobin A1c Fatigue H/O herpes labialis H/O tularemia Mixed hyperlipidemia Neck strain Prostate cancer screening Urinary tract infection Vision changes Vitamin D deficiency Family History Mother , AT AGE 39 Lupus Other CAD (coronary artery disease) Cancer Diabetes Heart attack Denies family history of Rheumatoid arthritis Hyperlipidemia Chronic kidney disease (CKD) Hypertension Stroke Social History Smoking and tobacco status: never smoked Second hand smoke exposure: No Alcohol intake: never Marital status: Current occupational status: employed 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 History of recent travel: No Physical Exam Const: COMMON NORMALS: no acute distress EXAM LIMITATIONS: no altered mental status GENERAL APPEARANCE: cooperative and comfortable ORIENTA TION/CONSCIOUSNESS: Yes awake, Yes oriented to person, Yes oriented to place and Yes oriented to time HENMT: COMMON NORMALS: normocephalic, atraumatic, hearing grossly normal bilaterally, external ears normal, EAC's normal, TM's normal bilaterally, Normal nasal mucous membranes and turbinates present, moist oral mucous membranes and oropharynx normal HEAD & SCALP: normocephalic and atraumatic NOSE: Normal nasal mucous membranes and turbinates present EXTERNAL EAR: Yes external ears normal EXTERNAL AUDITORY CANAL: EAC's normal TYMPANIC MEMBRANE: TM's normal bilaterally Eye: COMMON NORMALS: Equal, round and reactive pupils present, EOMs intact bilaterally, conjunctivae normal and no scleral icterus CONJUNCTIVA: Yes conjunctivae normal PUPIL: Yes Equal, round and reactive pupils present Neck/C-Spine: COMMON NORMALS: full ROM, no lymphadenopathy, supple and no JVD Lymph: LYMPHATIC: no lymphadenopathy noted and no lymphedema noted Resp: COMMON NORMALS: normal respiratory effort, No retractions, No use of accessory muscles and clear to auscultation bilaterally AUSCULTATION: clear to auscultation bilaterally Cardio: COMMON NORMALS: no JVD, regular rate, regular rhythm and No murmurs present (Cardio) RATE: regular rate RHYTHM: regular rhythm GI: COMMON NORMALS: Soft to palpation and No hepatosplenomegaly present AUSCULTATION: Yes normoactive bowel sounds PALPATION: Yes Soft to palpation, No Tenderness to palpation present (GI), No Guarding due to palpation present (GI) and Yes No hepatosplenomegaly present Extremity: COMMON NORMALS: normal to inspection, capillary refill normal, no clubbing, cyanosis or edema, no calf tenderness and no pedal edema OTHER: Systemic joint effusions without skin breakdown or ulceration no sign of reddened or inflamed joints appear minor arthritic. Neuro: SENSORIUM/ORIENTATION: Yes oriented to person, Yes oriented to place and Yes oriented to time Skin: COMMON NORMALS: no rashes or lesions noted GENERAL SKIN EXAM: no rashes or lesions noted Course 2 Vital Signs: Vital signs: Vital Signs Temperature 97.6 F 07/25/22 12:00 Pulse Rate 56 L 07/25/22 12:00 Respiratory Rate 18 07/25/22 12:00 Blood Pressure 118/76 07/25/22 12:00 Pulse Oximetry 96 07/25/22 12:00 Oxygen Delivery Me thod 07/25/22 12:00 MDM - Nausea/Vomiting/Diarrhea Medical Decision Making Acute lupus flare. At most he may have a minor bladder infection but not really significant enough to precipitate a temp is high as he stated that he had at home. Did give him a gram of Rocephin urine cultures have been drawn to talk to Dr. Galloway he recommends admission and with scheduled methylprednisolone IV until flare improves and then can be discharged home on 40 mg daily prednisone until he sees the patient next week. Medical Records I reviewed the patient's medical records. Lab Data I reviewed the patient's lab results. : 07/25/22 03:25 07/25/22 03:25 Laboratory Results Uric Acid 4.7 mg/dL (3.4-7.0) 07/24/22 14:38 Creatine Kinase 187 U/L (39-308) 07/24/22 14:38 Procalcitonin 5.35 ng/mL (0-0.5) H 07/24/22 14:38 Discharge Plan Discharge Patient Disposition: Admitted As Inpatient Admit Provider: Elzbieta Matta Clinical Impression: Lupus (systemic lupus erythematosus), Diabetes type 2, controlled, Urinary tract infection Condition: Stable Coding Level of Care Code ED Electroplating Worker for Cristhian Muniz
[2022-07-24] MEDS: lactated ringers 1,000 ML 999 ML IV (14:49)
--- NOTE | 2022-07-24 15:10 | PM.HP ---
Providers/Chief Complaint Primary Care Provider: RENA Strauss Chief Complaint: sent by dr dehydration History of Present Illness Gibson Brian is a 57 year old male who has history of lupus, follows up with Dr. Galloway, presented with lupus flare. Patient was seen at the PCP clinic for stiffness of the joints he also spiked fever 104 at home he has been experiencing upper airway infection with nasal congestion, sinus infection. He also experiencing nausea on Wednesday, 2 episodes of emesis 1 each Wednesday and . He has not noticed abdominal pain. He was referred to our facility for IV steroids because of lupus flare. Patient is denying recent use of antibiotics, even prior to worsening exposure, no recent traveling, patient tries to eat same on daily basis he is very careful with his lifestyle. No recent tick bites. He does endorse dry hacking cough today he is bringing up white sputum. In the ER he is complaining of stiff joints not able to move much. No signs of septic joint. He follows up with Dr. William he developed pneumonia and required multiple courses of antibiotics before he cleared his pulmonary infiltrates. His last bowel movement was today which was semisolid. Uric acid is normal, ESR 43, will request CRP, COVID antigen negative, Review of Systems Const: Reports: fever(s), chills and body aches Eyes: Denies: change in vision ENMT: Denies: throat pain Card: Denies: chest pain Resp: Reports: productive cough GI: Reports: nausea and vomiting; Denies: abdominal pain : Denies: flank pain Musc: Reports: extremity pain, joint pain, joint stiffness and limited range of motion Skin/Breast: Denies: rash Neuro: Denies: headache(s) Psych: Reports: anxiety Endo: Denies: polyuria Chuckie/Lymph: Denies: easy bruising All/Imm: Denies: urticaria Medications/Allergies Home Medications Medication Instructions Recorded Confirmed Last Taken Type blood sugar diagnostic (Blood #50 ea 01/21/22 07/24/22 Unknown Rx Glucose Test) blood-glucose meter (Blood Glucose #1 ea 01/21/22 07/24/22 Unknown Rx Monitoring) cholecalciferol (vitamin D3) 25 25 mcg PO QAM 02/13/22 07/24/22 07/23/22 History mcg (1,000 unit) capsule lysine 500 mg tablet (L-Lysine) 500 mg PO DAILY 05/05/22 07/24/22 Unknown History hydroxychloroquine 200 mg tablet 200 mg PO BID #60 tabs 05/07/22 07/24/22 07/23/22 Rx albuterol sulfate 2.5 mg (3 mL) inhalation QID PRN 05/28/22 07/24/22 Unknown Rx shortness of breath or wheezing #180 mL ibuprofen 800 mg tablet 800 mg PO Q8H PRN pain 30 days #60 07/07/22 07/24/22 07/23/22 Rx tabs azathioprine 50 mg tablet 50 mg PO QAM 07/24/22 07/24/22 07/23/22 History cyclobenzaprine 10 mg tablet 10 mg PO BEDTIME PRN Muscle Spasm 07/24/22 07/24/22 Unknown History omega-3 fatty acids 1,000 mg 1,000 mg PO DAILY 07/24/22 07/24/22 Unknown History capsule prednisone 5 mg tablet 5 mg PO QAM 07/24/22 07/24/22 Unknown History Allergies Allergy/AdvReac Type Severity Reaction Status Date / Time No Known Allergies Allergy Verified 07/24/22 14:28 PFSH Acute PFSH: Medical History Acute bacterial sinusitis Bacterial conjunctivitis Chronic conjunctivitis Elevated hemoglobin A1c Fatigue H/O herpes labialis H/O tularemia Mixed hyperlipidemia Neck strain Prostate cancer screening Urinary tract infection Vision changes Vitamin D deficiency Family History Mother , AT AGE 39 Lupus Other CAD (coronary artery disease) Cancer Diabetes Heart attack Denies family history of Rheumatoid arthritis Hyperlipidemia Chronic kidney disease (CKD) Hypertension Stroke Social History Smoking and tobacco status: never smoked Second hand smoke exposure: No Alcohol intake: never Marital status: Current occupational status: employed 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 History of recent travel: No Vitals/I&O/Wt Last Vital Signs Temp 99.6 F 07/24/22 13:45 Pulse 103 H 07/24/22 13:45 Resp 18 07/24/22 13:45 BP 124/84 07/24/22 13:45 Pulse Ox 95 07/24/22 13:45 O2 Del Method 07/24/22 13:45 Weight last 48 hrs Weight 95.254 kg Physical Exam Narrative: Pleasant cooperative male Clinically looks dehydrated Currently on room air S1, S2 No active murmur Lungs are clear Joints are stiff with limited range of motion No active signs of septic joint No significant skin rash Facial flushing EOMI, PERRLA Nonfocal neuro exam Pleasant and cooperative Data Micro: Microbiology 07/24/22 14:38 Blood Culture - Preliminary Blood SPECIMEN COLLECTED A&P Assessment and plan (1) Lupus arthritis: Status: Acute (2) Cough: Status: Acute (3) Lung disease, restrictive: Status: Acute (4) Asthma: Status: Acute (5) Enlarged heart: Status: Acute (6) Pleural effusion on right: Status: Acute (7) Lupus (systemic lupus erythematosus): Status: Acute (8) Renal cyst, right: Status: Acute (9) Cough: Status: Acute (10) Diabetes type 2, controlled: Status: Acute (11) Polycystic kidney: Status: Acute (12) Fever: Status: Acute (13) Arthralgia: Status: Acute (14) Fatigue: Status: Acute Qualifiers: Fatigue type: unspecified Qualified Code(s): R53.83 - Other fatigue Plan Acute flare of lupus Most likely this is related to viral infection, upper airway infection Patient is endorsing postnasal drip, nasal congestion and sinuses pain Fever 104 at home 2 episodes of nausea and vomiting I will start him on high-dose IV steroids Continue azathioprine and hydroxychloroquine Continue Tylenol, ibuprofen DVT prophylaxis Lovenox I will keep him on sliding scale because of requirement of high-dose IV steroids Patient was recently covered from pneumonia Currently requiring room air White sputum production Slightly high white count in his urine He is getting ceftriaxone empirical coverage Full code Cardiac diet Attestations Medical Necessity Statement*: Anticipating discharge within 48 hours needing IV steroids for lupus flare Time Spent in Patient Care: 40 Coding Level of Care Code Acute Hospitalist Physician for g Fwd Diagnoses Lupus arthritis M32.9 Cough R05.9 Lung disease, restrictive J98.4 Asthma J45.909 Enlarged heart I51.7 Pleural effusion on right J90 Lupus (systemic lupus erythematosus) M32.9 Renal cyst, right N28.1 Cough R05.9 Diabetes type 2, controlled E11.9 Polycystic kidney Q61.3 Fever R50.9 Arthralgia M25.50 Fatigue R53.83 Fatigue type: unspecified
[2022-07-24 15:12] LABS: Creatine Phosphokinase 187 U/L (39-308); Uric Acid 4.7 mg/dL (3.4-7.0)
[2022-07-24] MEDS: cefTRIAXone 1,000 MG in sodium chloride 0.9% (plus) 50 ML 100 MG IV (15:18)
[2022-07-24 15:41] VITALS: BP 141/86; PULSE 85; RESP 14; O2SAT 96
[2022-07-24 15:42] LABS: Procalcitonin 5.35 ng/mL (0-0.5)
[2022-07-24 17:00] LABS: Glucose Point of Care 144 mg/dL (70-110)
[2022-07-24 17:25] VITALS: BP 148/86; PULSE 80; RESP 17; TEMP 36.8; O2SAT 92
[2022-07-24] MEDS: enoxaparin 40 mg/0.4 mL Syringe SUBCUT (17:41)
[2022-07-24] MEDS: sodium chloride 0.9% 1,000 ML 75 ML IV (17:41)
[2022-07-24] MEDS: hydroxychloroquine 200 mg Tablet PO (17:42)
[2022-07-24 18:00] VITALS: PULSE 83; RESP 16; O2SAT 93
[2022-07-24] MEDS: insulin lispro 100 unit/1 mL SUBCUT (18:18)
[2022-07-24 20:50] VITALS: BP 122/83; PULSE 71; RESP 16; TEMP 36.4; O2SAT 94
[2022-07-24 21:50] LABS: Glucose Point of Care 196 mg/dL (70-110)
[2022-07-25] VITALS (7 sets, daily range): BP systolic 113–125; BP diastolic 74–79; PULSE 53–67; RESP 16–18; TEMP 36.4–36.6; O2SAT 93–96
[2022-07-25 04:02] LABS: Basophils % 0.2 %; Hematocrit 36.1 % (42.0-52.0); Hemoglobin 11.9 g/dL (11.7-16.6); Lymphocytes # 0.8 10^3/uL (0.8-4.8); Lymphocytes % 18.4 %; Mean Corpuscular Hemoglobin 27.9 pg (28.0-34.0); Mean Corpuscular Volume 84.5 fl (80-94); Mean Platelet Volume 9.7 fL (7.4-10.4); Monocytes # 0.1 10^3/uL (0.2-0.9); Monocytes % 2.4 %; Neutrophils # 3.52 10^3/uL (1.8-7.7); Neutrophils % 78.3 %; Nucleated Red Blood Cells % 0 %; Platelet Count 234 10^3/cmm (130-400); Red Blood Count 4.27 10^6/uL (4.1-5.3); Red Cell Distribution Width 13.2 % (12.1-15.1); White Blood Count 4.5 10^3/uL (4.0-10.0)
[2022-07-25 04:25] LABS: Anion Gap 16.2 (5-19); Blood Urea Nitrogen 20 mg/dL (6-20); C Reactive Protein 186.2 mg/L (0.0-4.9); Calcium 8.9 mg/dL (8.5-10.5); Carbon Dioxide 24 mmol/L (22-29); Chloride 101 mmol/L (98-107); Glomerular Filtration Rate 115.4 mL/min (90-130); Glucose 241 mg/dL (65-115); Magnesium 2.2 mg/dL (1.7-2.3); Osmolality Calculated 295 mOsm/kg (285-295); Potassium 4.2 mmol/L (3.5-5.1); Sodium 137 mmol/L (136-145)
[2022-07-25] MEDS: sodium chloride 0.9% 1,000 ML 75 ML IV ×2 (06:20→20:16)
[2022-07-25 06:51] LABS: Glucose Point of Care 208 mg/dL (70-110)
[2022-07-25] MEDS: insulin lispro 100 unit/1 mL SUBCUT ×3 (09:20→17:56)
[2022-07-25] MEDS: cefTRIAXone 1,000 MG in sodium chloride 0.9% (plus) 50 ML 100 MG IV (09:21)
[2022-07-25] MEDS: sennosides-docusate Tablet 1 TAB PO (09:22)
[2022-07-25] MEDS: hydroxychloroquine 200 mg Tablet PO ×2 (09:22→17:57)
--- NOTE | 2022-07-25 11:02 | P.PN_ITS ---
Subjective Subjective: endorsing feeling better Tolerating his diet No active fever No worsening of leukocytosis CRP trending down Vitals/I&O/Wt Last Vital Signs Temp 97.5 F L 07/25/22 08:00 Pulse 53 L 07/25/22 08:00 Resp 18 07/25/22 08:00 BP 113/75 07/25/22 08:00 Pulse Ox 94 07/25/22 08:00 O2 Del Method 07/25/22 08:00 07/24/22 07/25/22 07/25/22 22:59 06:59 14:59 Intake Total 948.75 / 948.75 360 / 360 Output Total 650 / 650 375 / 375 Balance 298.75 / 298.75 -15 / -15 Weight last 48 hrs Weight 95.254 kg Physical Exam Narrative: Awake and alert No signs of septic joint EOMI, PERRLA Nonfocal neuro exam S1, S2 Skin Nunez of face and neck noted however no active skin rash Abdomen soft Looks euvolemic at the bedside Currently doing well on room air In good spirits Data : 07/25/22 03:25 07/25/22 03:25 Micro: Microbiology 07/24/22 14:45 Blood Culture - Preliminary Blood SPECIMEN COLLECTED 07/24/22 14:38 Blood Culture - Preliminary Blood SPECIMEN COLLECTED A&P Assessment and plan (1) Lupus arthritis: (2) Lung disease, restrictive: (3) Lupus (systemic lupus erythematosus): (4) Muscle spasm: Plan Lupus active flare High white count in urine Continue ceftriaxone Blood culture most likely contamination we will follow-up with final report Afebrile CRP trending down No leukocytosis or fever Continue normal saline along IV fluids Continue hydroxychloroquine and azathioprine Attestations Medical Necessity Statement*: Discharge tomorrow if clinically stable Time Spent in Patient Care: 40 Coding Level of Care Code Acute Experimental Flight Test Mechanic for g Fwd Diagnoses Lupus arthritis M32.9 Lung disease, restrictive J98.4 Lupus (systemic lupus erythematosus) M32.9 Muscle spasm M62.838
[2022-07-25 12:25] LABS: Glucose Point of Care 248 mg/dL (70-110)
[2022-07-25] MEDS: enoxaparin 40 mg/0.4 mL Syringe SUBCUT (16:25)
[2022-07-25 17:17] LABS: Glucose Point of Care 155 mg/dL (70-110)
[2022-07-25 21:30] LABS: Glucose Point of Care 222 mg/dL (70-110)
[2022-07-26 00:43] VITALS: BP 118/80; PULSE 54; RESP 16; TEMP 36.4; O2SAT 94
[2022-07-26 03:53] LABS: Basophils % 0.1 %; Hematocrit 33.7 % (42.0-52.0); Hemoglobin 11.1 g/dL (11.7-16.6); Lymphocytes % 6.5 %; Mean Corpuscular HGB Conc 32.9 g/dL (30.0-36.0); Mean Corpuscular Hemoglobin 27.7 pg (28.0-34.0); Mean Platelet Volume 10.4 fL (7.4-10.4); Monocytes # 0.4 10^3/uL (0.2-0.9); Monocytes % 2.3 %; Neutrophils # 13.83 10^3/uL (1.8-7.7); Neutrophils % 90.2 %; Nucleated Red Blood Cells % 0 %; Platelet Count 248 10^3/cmm (130-400); Red Blood Count 4.01 10^6/uL (4.1-5.3); Red Cell Distribution Width 13.1 % (12.1-15.1); White Blood Count 15.4 10^3/uL (4.0-10.0)
[2022-07-26 04:19] LABS: Anion Gap 13.7 (5-19); Blood Urea Nitrogen 21 mg/dL (6-20); Calcium 8.7 mg/dL (8.5-10.5); Carbon Dioxide 24 mmol/L (22-29); Chloride 106 mmol/L (98-107); Glomerular Filtration Rate 98.9 mL/min (90-130); Glucose 235 mg/dL (65-115); Osmolality Calculated 299 mOsm/kg (285-295); Potassium 4.7 mmol/L (3.5-5.1); Sodium 139 mmol/L (136-145)
[2022-07-26 05:47] VITALS: BP 109/71; PULSE 54; RESP 15; TEMP 36.4; O2SAT 95
[2022-07-26 06:39] LABS: Glucose Point of Care 171 mg/dL (70-110)
[2022-07-26 07:23] VITALS: BP 110/69; PULSE 58; RESP 16; O2SAT 95
[2022-07-26] MEDS: sennosides-docusate Tablet 1 TAB PO (08:23)
[2022-07-26] MEDS: hydroxychloroquine 200 mg Tablet PO (08:23)
[2022-07-26] MEDS: cefTRIAXone 1,000 MG in sodium chloride 0.9% (plus) 50 ML 100 MG IV (08:24)
[2022-07-26] MEDS: insulin lispro 100 unit/1 mL SUBCUT (08:26)
--- NOTE | 2022-07-26 08:58 | P.DS_ITS ---
Discharge Providers Date of Admission: 07/24/22 16:17 Date of Discharge: July 26, 2022 Attending Provider at Admission: Elzbieta Matta MD Attending Provider at Discharge: Elzbieta Matta MD Primary Care Provider: RENA Strauss Diagnoses at Discharge Discharge Diagnosis (1) Lupus arthritis: Status: Acute (2) Lung disease, restrictive: Status: Acute (3) Lupus (systemic lupus erythematosus): Status: Acute (4) Muscle spasm: Status: Acute Reason for Visit Reason for Visit: sent by dr dehydration Hospital Course Hospital Course 57 male who has history of lupus follow-up with Dr. Galloway outpatient came in with acute lupus flare patient spiked fever at home he was experiencing severe joint stiffness and muscle cramps, he was diagnosed with acute exacerbation of underlying lupus, CRP was 200, he did not spike any fever throughout his hospitalization, CRP trending down with IV steroids, his symptoms improved within 48 hours he will be discharged home on steroid taper prednisone 40 mg for 3 days, 30 mg for 3 days, 20 mg for 3 days, 10 mg for 3 days and then he can continue his home regimen and meanwhile we will arrange outpatient visit with Dr. Galloway. Cultures remain negative. CRP trending down. Cytosis most likely is steroid-induced. No signs of septic joint Physical Exam Narrative: Awake and alert No signs of septic j oint Joint stiffne ss of hands and ar ms improved EOMI, PERRLA Nonfocal ne uro exam S1, S2 Sk in Nunez of face and neck noted howeve r no active skin r polo Abdomen soft L ooks euvolemic Wif e at the bedside C urrently doing wel l on room air In g ood spirits Discharge Data Studies Completed and Pending Pending at discharge Category Date Time Status Blood Culture Stat Lab 07/24/22 14:45 Results Laboratory Results WBC 15.4 10^3/uL (4.0-10.0) H 07/26/22 03:32 RBC 4.01 10^6/uL (4.1-5.3) L 07/26/22 03:32 Hgb 11.1 g/dL (11.7-16.6) L 07/26/22 03:32 Hct 33.7 % (42.0-52.0) L 07/26/22 03:32 MCV 84.0 fl (80-94) 07/26/22 03:32 MCH 27.7 pg (28.0-34.0) L 07/26/22 03:32 MCHC 32.9 g/dL (30.0-36.0) 07/26/22 03:32 RDW 13.1 % (12.1-15.1) 07/26/22 03:32 Plt Count 248 10^3/cmm (130-400) 07/26/22 03:32 MPV 10.4 fL (7.4-10.4) 07/26/22 03:32 Neut % (Auto) 90.2 % 07/26/22 03:32 Lymph % (Auto) 6.5 % 07/26/22 03:32 [place] % (Auto) 2.3 % 07/26/22 03:32 Eos % (Auto) 0.0 % 07/26/22 03:32 Baso % (Auto) 0.1 % 07/26/22 03:32 Neut # (Auto) 13.83 10^3/uL (1.8-7.7) H 07/26/22 03:32 Lymph # (Auto) 1.0 10^3/uL (0.8-4.8) 07/26/22 03:32 [place] # (Auto) 0.4 10^3/uL (0.2-0.9) 07/26/22 03:32 Eos # (Auto) 0.0 10^3/uL (0.0-0.8) 07/26/22 03:32 Baso # (Auto) 0.0 10^3/uL (0.0-0.1) 07/26/22 03:32 Nucleated RBC % (auto) 0 % 07/26/22 03:32 Nucleated RBCs # 0.0 /100WBC 07/26/22 03:32 Sodium 139 mmol/L (136-145) 07/26/22 03:32 Potassium 4.7 mmol/L (3.5-5.1) 07/26/22 03:32 Chloride 106 mmol/L (98-107) 07/26/22 03:32 Carbon Dioxide 24 mmol/L (22-29) 07/26/22 03:32 Anion Gap 13.7 (5-19) 07/26/22 03:32 BUN 21 mg/dL (6-20) H 07/26/22 03:32 Creatinine 0.8 mg/dL (0.7-1.2) 07/26/22 03:32 GFR Calculation 98.9 mL/min (90-130) 07/26/22 03:32 Glucose 235 mg/dL (65-115) H 07/26/22 03:32 POC Glucose 171 mg/dL (70-110) H 07/26/22 06:34 Calculated Osmolality 299 mOsm/kg (285-295) H 07/26/22 03:32 Uric Acid 4.7 mg/dL (3.4-7.0) 07/24/22 14:38 Calcium 8.7 mg/dL (8.5-10.5) 07/26/22 03:32 Phosphorus 4.0 mg/dL (2.5-4.5) 07/25/22 03:25 Magnesium 2.2 mg/dL (1.7-2.3) 07/25/22 03:25 Creatine Kinase 187 U/L (39-308) 07/24/22 14:38 C-Reactive Protein 186.2 mg/L (0.0-4.9) H 07/25/22 03:25 Procalcitonin 5.35 ng/mL (0-0.5) H 07/24/22 14:38 Vitals Last Vital Signs Temp 97.5 F L 07/26/22 05:47 Pulse 58 L 07/26/22 07:23 Resp 16 07/26/22 07:23 BP 110/69 07/26/22 07:23 Pulse Ox 95 07/26/22 07:23 O2 Del Method 07/26/22 07:23 Discharge Plan Discharge Patient Disposition: Home Condition: Stable Prescriptions: New prednisone 10 mg tablet 10 mg PO DAILY Qty: 30 0RF Rx Instructions: take 40mg for 3 days and then 30mg for 3 days, 20 mg for 3 days , 10mg for 3 days and then 5mg a day Continued (DME) Blood Glucose Test Strip See Rx Instructions .Route Qty: 50 2RF Rx Instructions: As directed (DME) blood-glucose meter [Blood Glucose Monitoring] Kit See Rx Instructions .ROUTE .MEDSUPPLY Qty: 1 0RF Rx Instructions: As directed albuterol sulfate 2.5 mg /3 mL (0.083 %) solution for nebulization 2.5 mg inhalation QID PRN (Reason: shortness of breath or wheezing) Qty: 180 2RF lysine [L-Lysine] 500 mg tablet 500 mg PO DAILY hydroxychloroquine 200 mg tablet 200 mg PO BID Qty: 60 3RF ibuprofen 800 mg tablet 800 mg PO Q8H PRN (Reason: pain) 30 Days Qty: 60 2RF cholecalciferol (vitamin D3) 25 mcg (1,000 unit) Capsule 25 mcg PO QAM Fish Oil Concentrate 1,000 mg Capsule 1,000 mg PO DAILY prednisone 5 mg Tablet 5 mg PO QAM cyclobenzaprine 10 mg tablet 10 mg PO BEDTIME PRN (Reason: Muscle Spasm) azathioprine 50 mg tablet 50 mg PO QAM Discharge Orders: Discharge Order (Routine); Ordered 07/26/22 Ordered By: Elzbieta Matta Referrals: Anders Galloway MD [Physician] - 1-3 days (Please call and make a follow up appointment on Friday 07/27) Janessa Ye FNP [Primary Care Provider] - 1 week (Please call and make a follow up appointment on Friday 07/27, for one week. ) Patient Instructions: Opioid Safety Discharge Attestations Time Spent in Discharge Care*: less than 30 min Quality Metrics Clinical Quality Measures [ No reported AMI, CVA or VTE this stay] Coding Level of Care Code Acute [facility] [place] note Diagnoses Lupus arthritis M32.9 Lung disease, restrictive J98.4 Lupus (systemic lupus erythematosus) M32.9 Muscle spasm M62.838
--- NOTE | 2022-07-26 10:31 | PC.NURSE ---
Discussed discharge and new medications with patient and spouse. Spouse verbalized the understanding to call on Wednesday for follow up appointments and understanding of medications.
[2022-07-26 10:33] VITALS: BP 110/69; PULSE 58; RESP 16; O2SAT 95
== END 2022-07-26 10:34 | disposition home or self-care (01) ==
LOC: ER 14:21 → MEDSURG 23:44
PROVIDERS: Admitting Provider Internal Medicine; Emergency Provider Family Medicine; PCP Nurse Practitioner Family; Visit Provider Internal Medicine
DX: M32.9 Systemic lupus erythematosus, unspecified (principal); J98.4 Other disorders of lung; E78.2 Mixed hyperlipidemia; R05.9 Cough, unspecified; J45.909 Unspecified asthma, uncomplicated; R53.83 Other fatigue; M25.50 Pain in unspecified joint; R50.9 Fever, unspecified; Q61.3 Polycystic kidney, unspecified; E11.9 Type 2 diabetes mellitus without complications; Z79.52 Long term (current) use of systemic steroids
CPT/HCPCS: 36415; 36416; 80048; 82550; 82962; 83735; 84100; 84145; 84550; 85025; 86140; 87040; 87400; 87426; 96361; 96365; 96372; 96375; 96376; 99285; G0378; J0696; J1650; J1815; J2920; J2930; J7030

== ENCOUNTER 2022-07-27 06:00 | Outpatient (CLI) | payer BC, SELFPAY | END 2022-07-27 23:00 | disposition home or self-care (01) | LOC: RAD 08-31 13:41 | PROVIDERS: PCP Nurse Practitioner Family; Visit Provider Internal Medicine Pulmonary Disease | DX: Z92.241 Personal history of systemic steroid therapy (principal) | CPT/HCPCS: 82962 ==

== ENCOUNTER → 2022-08-03 10:18 | Outpatient (BNVA) | payer BC, SELFPAY | PROVIDERS: PCP Nurse Practitioner Family; Visit Provider Internal Medicine | DX: R73.09 Other abnormal glucose (principal); R76.8 Other specified abnormal immunological findings in serum; M25.50 Pain in unspecified joint; J90 Pleural effusion, not elsewhere classified; M32.9 Systemic lupus erythematosus, unspecified; M62.838 Other muscle spasm | CPT/HCPCS: 36415; 80053; 81003; 82550; 83735; 84100; 84443; 85025; 85651; 86140; 86160; 86162; 86235; 86255; 86376 ==

== ENCOUNTER → 2022-10-08 09:47 | Outpatient (BNVA) | payer BC, SELFPAY | PROVIDERS: PCP Nurse Practitioner Family; Visit Provider Nurse Practitioner Family | DX: R05.9 Cough, unspecified (principal); B00.1 Herpesviral vesicular dermatitis; M32.9 Systemic lupus erythematosus, unspecified; J20.8 Acute bronchitis due to other specified organisms; B96.89 Other specified bacterial agents as the cause of diseases classified elsewhere | CPT/HCPCS: 80053; 81000; 85025; 85651; 86140; 87400 ==

== ENCOUNTER 2022-11-04 12:22 | Outpatient (CLI) | payer BC, SELFPAY ==
--- NOTE | 2022-11-04 14:30 | CTR_ITS ---
PROCEDURE INFORMATION: Exam: CT Chest Without Contrast; Diagnostic Exam date and time: 11/04/2022 1:23 PM Age: 57 years old Clinical indication: Condition or disease; Lung condition and disease; Other: Interstitial lung disease; Additional info: J98.4 - other disorders of lung, hrct TECHNIQUE: Imaging protocol: Diagnostic computed tomography of the chest without contrast. Radiation optimization: All CT scans at this facility use at least one of these dose optimization techniques: automated exposure control; mA and/or kV adjustment per patient size (includes targeted exams where dose is matched to clinical indication); or iterative reconstruction. COMPARISON: CT chest con [id number] 05/14/2022 10:00 AM RADIATION DOSE METRICS: Total DLP (mGy-cm): 1623.23 FINDINGS: Lungs: Mild scattered areas of bandlike interstitial fibrosis, similar to prior exam. Emphysematous changes suspected. Expiratory images demonstrate patchy areas of ground-glass airspace opacity not present on inspiratory images suggestive of scattered areas of atelectasis. Pleural spaces: Unremarkable. No pneumothorax. No pleural effusion. Heart: Unremarkable. No cardiomegaly. No pericardial effusion. Coronary arteries: Coronary artery atherosclerotic calcifications. Lymph nodes: Scattered prominent subcentimeter short axis mediastinal lymph nodes. Vasculature: Unremarkable. No aortic aneurysm. Bones/joints: Unremarkable. No acute fracture. Soft tissues: Unremarkable. CT/CT chest con [id number] IMPRESSION: 1. Mild scattered areas of bandlike interstitial fibrosis, similar to prior exam. 2. Emphysematous changes suspected. 3. Expiratory images demonstrate patchy areas of ground-glass airspace opacity not present on inspiratory images suggestive of scattered areas of atelectasis. 4. Scattered prominent subcentimeter short axis mediastinal lymph nodes. 5. Coronary artery atherosclerotic calcifications. COMMENTS: In the absence of a history or active diagnosis of lung cancer, it is recommended that this patient with emphysema be evaluated for enrollment in a low dose CT lung cancer screening program.
== END 2022-11-04 12:23 | disposition home or self-care (01) ==
LOC: RAD 12:22
PROVIDERS: PCP Nurse Practitioner Family; Visit Provider Internal Medicine Pulmonary Disease
DX: J98.4 Other disorders of lung (principal); I25.10 Atherosclerotic heart disease of native coronary artery without angina pectoris
CPT/HCPCS: 71250

== ENCOUNTER 2022-12-14 09:50 | Outpatient (CLI) | payer BC, SELFPAY | END 2022-12-14 09:51 | disposition home or self-care (01) | PROVIDERS: PCP Nurse Practitioner Family; Visit Provider Internal Medicine | DX: M25.50 Pain in unspecified joint (principal); M32.9 Systemic lupus erythematosus, unspecified | CPT/HCPCS: 36415; 80053; 85025; 85651; 86140 ==

== ENCOUNTER → 2022-12-17 09:00 | Outpatient (BNVA) | payer BC, SELFPAY | PROVIDERS: PCP Nurse Practitioner Family; Visit Provider Nurse Practitioner Family | DX: M25.50 Pain in unspecified joint (principal); M32.9 Systemic lupus erythematosus, unspecified | CPT/HCPCS: 81000 ==

== ENCOUNTER 2023-01-12 10:46 | Outpatient (CLI) | payer BC, SELFPAY ==
[2023-01-12 11:16] VITALS: PULSE 56; RESP 18; O2SAT 98
[2023-01-12] MEDS: albuterol 2.5 mg/3 mL Neb INHALATION (11:16)
[2023-01-12 11:20] VITALS: PULSE 61
== END 2023-01-12 10:47 | disposition home or self-care (01) ==
PROVIDERS: PCP Nurse Practitioner Family; Visit Provider Internal Medicine Pulmonary Disease
DX: J98.4 Other disorders of lung (principal); R06.09 Other forms of dyspnea; J45.909 Unspecified asthma, uncomplicated
CPT/HCPCS: 94060; 94726; 94729; J7613

== ENCOUNTER → 2023-02-18 10:03 | Outpatient (BNVA) | payer BC, SELFPAY | PROVIDERS: PCP Nurse Practitioner Family; Visit Provider Nurse Practitioner Family | DX: M25.50 Pain in unspecified joint (principal) | CPT/HCPCS: 80053; 85025; 85651; 86140 ==

== ENCOUNTER 2023-04-15 07:43 | Day surgery (SDC) | payer BC, SELFPAY ==
[2023-04-13 15:43] VITALS: BMI 29.5
[2023-04-15 07:57] VITALS: BP 176/94; PULSE 65; RESP 18; TEMP 36.4; O2SAT 98
[2023-04-15] MEDS: sodium chloride 0.9% 1,000 ML 30 ML IV (08:04)
--- NOTE | 2023-04-15 09:33 | W.PM.OPSUD ---
Surgery/Procedure H&P Update DATE OF PROCEDURE: April 15, 2023 DATE H&P PERFORMED: 03/18/23 H&P UPDATE INFORMATION: I have reviewed H&P completed within last 30 days, I have examined patient prior to procedure and No changes to prior documentation PLANNED PROCEDURE: Operation Date: 04/15/23 09:30 Proposed Procedures p Colonoscopy 25006,Z12.11(Not Applicable) - Kishore Fonseca, DO
--- NOTE | 2023-04-15 09:38 | ANES.PREANE2 ---
Pre-Anesthetic Assessment Height/Weight: Height 1.83 m Weight 98.883 kg Temp Pulse Resp BP Pulse Ox O2 Del Method 97.5 F L 65 18 176/94 98 Room Air 04/15/23 07:57 04/15/23 07:57 04/15/23 07:57 04/15/23 07:57 04/15/23 07:57 04/15/23 07:57 Operation Date: 04/15/23 09:30 Proposed Procedures p Colonoscopy 22289,Z12.11(Not Applicable) - Kishore Fonseca DO Familial anesthetic complications: none Was Beta Carissa taken within 24 hours: N/A Was Clonidine taken within 24 hours: N/A Last intake: Intake Last Liquid Date 04/14/23 Last Liquid Time 21:00 Last Solid Date 04/13/23 Last Solid Time 21:00 Social No alcohol and No tobacco Exam alert and oriented x 3 Airway Submandibular: within normal limits Cervical ROM: within normal limits Mallampati: Class III Dentition: false History/ROS No significant history except as noted Pulmonary lungs at 60% from pnuemonia last year Neuropsych lupus Anesthetic Plan ASA status: 2 Anesthesia: Anesthesia Evaluation, General and MAC Risk of > 500 ml blood loss (7ml/kg in children): No Medications/Allergies Home Medications Medication Instructions Recorded Confirmed Last Taken Type blood sugar diagnostic (Blood #50 ea 01/21/22 03/18/23 Unknown Rx Glucose Test strips) blood-glucose meter (Blood Glucose #1 ea 01/21/22 03/18/23 Unknown Rx Monitoring kit) cholecalciferol (vitamin D3) 25 25 mcg PO QAM 02/13/22 04/13/23 04/14/23 History mcg (1,000 unit) capsule lysine 500 mg tablet (L-Lysine) 500 mg PO DAILY 05/05/22 04/13/23 04/14/23 History albuterol sulfate 2.5 mg/3 mL 2.5 mg (3 mL) inhalation QID PRN 05/28/22 04/13/23 Unknown Rx (0.083 %) solution for nebulization shortness of breath or wheezing #180 mL omega-3 fatty acids 1,000 mg 1,000 mg PO DAILY 07/24/22 04/13/23 04/14/23 History capsule ibuprofen 800 mg tablet 800 mg PO Q8H PRN pain 30 days #60 11/19/22 04/13/23 04/12/23 Rx tabs azathioprine 50 mg tablet 50 mg PO .COMPLEX #90 tabs 03/02/23 04/13/23 04/14/23 Rx hydroxychloroquine 200 mg tablet 200 mg PO BID #60 tabs 03/02/23 04/13/23 04/14/23 Rx prednisone 10 mg tablet 10 mg PO DAILY PRN Inflammation 04/13/23 04/15/23 04/10/23 History Allergies Allergy/AdvReac Type Severity Reaction Status Date / Time No Known Allergies Allergy Verified 04/13/23 15:35 Current Medications Generic Name Dose Route Start Last Admin Trade Name Freq PRN Reason Stop Dose Admin Sodium Chloride 1,000 mls @ 30 mls/hr 04/15/23 07:45 04/15/23 08:04 Sodium Chloride 0.9% IV 04/16/23 07:44 30 mls/hr .Q24H ANDREZ Administration PFSH Anesthesia Medical History Acute bacterial sinusitis Arthralgia Asthma Bacterial conjunctivitis Chronic conjunctivitis Cough Cough Diabetes type 2, controlled Elevated hemoglobin A1c Enlarged heart Fatigue Fever H/O herpes labialis H/O tularemia Lung disease, restrictive Lupus (systemic lupus erythematosus) Lupus arthritis Mixed hyperlipidemia Muscle spasm Neck strain Pleural effusion on right Polycystic kidney Prostate cancer screening Renal cyst, right Urinary tract infection Vision changes Vitamin D deficiency Surgical History History of hernia surgery Hx of colonoscopy with polypectomy 5 yrs ago Family History Mother , AT AGE 39 Lupus Other CAD (coronary artery disease) Cancer Diabetes Heart attack Denies family history of Rheumatoid arthritis Hyperlipidemia Chronic kidney disease (CKD) Hypertension Stroke Social History Smoking and tobacco status: never smoked Second hand smoke exposure: No Alcohol intake: never Substance/Drug Use: never Adopted: No Lives independently: Yes Household members: spouse Housing: House Marital status: Current occupational status: employed 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 Data Anesthesia Cardiac Studies: Echocardiogram 03/27/22
[2023-04-15 09:55] VITALS: BP 108/70; PULSE 67; RESP 18; TEMP 36.2; O2SAT 94
[2023-04-15 10:04] VITALS: BP 110/76; PULSE 63; RESP 18; O2SAT 97
[2023-04-15 10:15] VITALS: BP 119/91; PULSE 72; RESP 18; O2SAT 96
--- NOTE | 2023-04-15 15:33 | ANE.PACU2 ---
Inpatient post-anesthesia follow up: Airway intact: Yes Vital signs: Temperature 97.1 F Pulse Rate 72 Respiratory Rate 18 Blood Pressure 119/91 Pulse Oximetry 96 Oxygen Delivery Me thod Room Air Oxygen Flow Rate Fraction of Inspir ed Oxygen Hydration adequate: Yes Nausea and vomiting: No Pain level: 2 Mental status: Baseline
== END 2023-04-15 10:30 | disposition home or self-care (01) ==
PROVIDERS: PCP Nurse Practitioner Family; Visit Provider Surgery
PROC: 0DJD8ZZ Inspection of Lower Intestinal Tract, Via Natural or Artificial Opening Endoscopic (ICD-10-PCS; CPT 45378; principal; 2023-04-15 09:30)
DX: K92.1 Melena (principal); K57.30 Diverticulosis of large intestine without perforation or abscess without bleeding; K64.8 Other hemorrhoids; E11.9 Type 2 diabetes mellitus without complications; E78.2 Mixed hyperlipidemia; J45.909 Unspecified asthma, uncomplicated; Z86.010 Personal history of colon polyps; Z86.711 Personal history of pulmonary embolism
CPT/HCPCS: 45378; J2704; J7030

== ENCOUNTER → 2023-04-28 15:27 | Outpatient (BNVA) | payer BC, SELFPAY | PROVIDERS: PCP Nurse Practitioner Family; Visit Provider Nurse Practitioner Family | DX: M25.50 Pain in unspecified joint (principal); R76.8 Other specified abnormal immunological findings in serum; J01.90 Acute sinusitis, unspecified; B96.89 Other specified bacterial agents as the cause of diseases classified elsewhere; E78.2 Mixed hyperlipidemia; R07.81 Pleurodynia; B00.1 Herpesviral vesicular dermatitis; J20.8 Acute bronchitis due to other specified organisms; M32.9 Systemic lupus erythematosus, unspecified | CPT/HCPCS: 80053; 81000; 85025; 85651; 86140 ==

== ENCOUNTER → 2023-07-13 11:23 | Outpatient (BNVA) | payer BC, SELFPAY | PROVIDERS: PCP Nurse Practitioner Family; Visit Provider Nurse Practitioner Family | DX: E78.5 Hyperlipidemia, unspecified (principal); E11.9 Type 2 diabetes mellitus without complications; M25.50 Pain in unspecified joint; R76.8 Other specified abnormal immunological findings in serum; Z79.899 Other long term (current) drug therapy | CPT/HCPCS: 80053; 80061; 82550; 82552; 83036; 85025; 85651; 86140 ==

== ENCOUNTER → 2023-10-20 08:08 | Outpatient (BNVA) | payer BC, SELFPAY | PROVIDERS: PCP Nurse Practitioner Family; Visit Provider Nurse Practitioner Family | DX: R76.8 Other specified abnormal immunological findings in serum (principal); M25.50 Pain in unspecified joint | CPT/HCPCS: 80053; 81000; 85025; 85651; 86140; 86160 ==

== ENCOUNTER → 2023-11-24 08:18 | Outpatient (BNVA) | payer BC, SELFPAY | PROVIDERS: PCP Nurse Practitioner Family; Visit Provider Nurse Practitioner Family | DX: E11.9 Type 2 diabetes mellitus without complications (principal); E78.2 Mixed hyperlipidemia | CPT/HCPCS: 80061; 83036; 83721 ==

== ENCOUNTER → 2024-02-22 08:59 | Outpatient (BNVA) | payer BC, SELFPAY | PROVIDERS: PCP Nurse Practitioner Family; Visit Provider Internal Medicine Rheumatology | DX: Z79.899 Other long term (current) drug therapy (principal); M32.9 Systemic lupus erythematosus, unspecified; E11.9 Type 2 diabetes mellitus without complications; E78.2 Mixed hyperlipidemia | CPT/HCPCS: 80061; 80076; 82565; 83036; 85025; 85651; 86140 ==

== ENCOUNTER → 2024-05-23 09:07 | Outpatient (BNVA) | payer BC, SELFPAY | PROVIDERS: PCP Nurse Practitioner Family; Visit Provider Nurse Practitioner Family | DX: M32.9 Systemic lupus erythematosus, unspecified (principal); E78.2 Mixed hyperlipidemia | CPT/HCPCS: 80061; 80076; 82565; 85025; 85651; 86140 ==

== ENCOUNTER → 2024-07-26 09:16 | Outpatient (BNVA) | payer OTHER, SELFPAY | PROVIDERS: PCP Nurse Practitioner Family; Visit Provider Nurse Practitioner Family | DX: Z79.899 Other long term (current) drug therapy (principal); E78.2 Mixed hyperlipidemia | CPT/HCPCS: 80061; 80076; 82565; 85025; 85651; 86140 ==

== ENCOUNTER → 2024-08-10 11:12 | Outpatient (BNVA) | payer OTHER, SELFPAY | PROVIDERS: PCP Nurse Practitioner Family; Visit Provider Nurse Practitioner Family | DX: E11.9 Type 2 diabetes mellitus without complications (principal); E78.2 Mixed hyperlipidemia | CPT/HCPCS: 83036 ==

== ENCOUNTER → 2024-10-05 09:23 | Outpatient (BNVA) | payer OTHER, SELFPAY | PROVIDERS: PCP Nurse Practitioner Family; Visit Provider Nurse Practitioner Family | DX: E11.9 Type 2 diabetes mellitus without complications (principal); R73.09 Other abnormal glucose; Z79.899 Other long term (current) drug therapy; M06.00 Rheumatoid arthritis without rheumatoid factor, unspecified site; E78.2 Mixed hyperlipidemia | CPT/HCPCS: 80053; 80061; 80076; 82565; 85025; 85651; 86140 ==

== ENCOUNTER → 2025-01-15 09:48 | Outpatient (BNVA) | payer OTHER, SELFPAY | PROVIDERS: PCP Nurse Practitioner Family; Visit Provider Nurse Practitioner Family | DX: E78.2 Mixed hyperlipidemia (principal); E55.9 Vitamin D deficiency, unspecified | CPT/HCPCS: 80061; 82306 ==

== ENCOUNTER → 2025-01-17 09:16 | Outpatient (BNVA) | payer OTHER, SELFPAY | PROVIDERS: PCP Nurse Practitioner Family; Visit Provider Internal Medicine Rheumatology | DX: M32.9 Systemic lupus erythematosus, unspecified (principal); E78.2 Mixed hyperlipidemia; E55.9 Vitamin D deficiency, unspecified; Z79.899 Other long term (current) drug therapy | CPT/HCPCS: 80076; 82565; 85025; 85651; 86140 ==

== ENCOUNTER → 2025-05-03 08:56 | Outpatient (BNVA) | payer OTHER, SELFPAY | PROVIDERS: PCP Nurse Practitioner Family; Visit Provider Nurse Practitioner Family | DX: E78.2 Mixed hyperlipidemia (principal); I10 Essential (primary) hypertension; R73.09 Other abnormal glucose; J01.10 Acute frontal sinusitis, unspecified | CPT/HCPCS: 80053; 80061; 83036 ==

== ENCOUNTER → 2025-05-09 08:07 | Outpatient (BNVA) | payer OTHER, SELFPAY | PROVIDERS: PCP Nurse Practitioner Family; Visit Provider Internal Medicine Rheumatology | DX: Z79.899 Other long term (current) drug therapy (principal); M32.9 Systemic lupus erythematosus, unspecified | CPT/HCPCS: 80076; 82565; 85025; 85651; 86140 ==

== ENCOUNTER 2025-07-06 10:54 | Outpatient (CLI) | payer OTHER, SELFPAY ==
[2025-07-06 11:43] LABS: Hematocrit 42.2 % (37-53); Hemoglobin 14.60 g/dL (11.27-16.99); Mean Corpuscular HGB Conc 34.6 g/dL (30-55); Mean Corpuscular Hemoglobin 30.0 pg (27-33); Mean Corpuscular Volume 86.7 fl (82-101); Nucleated Red Blood Cells % 0 %; Platelet Count 207 10^3/cmm (157-399); Red Blood Count 4.87 10^6/uL (3.85-5.65); White Blood Count 4.30 10^3/uL (3.29-11.43)
[2025-07-06 12:02] LABS: Alanine Aminotransferase 28 U/L (0-41); Albumin Level 4.5 g/dL (3.5-5.2); Alkaline Phosphatase 83 U/L (40-130); Aspartate Amino Transferase 23 U/L (0-40); Globulin 3.1 g/dL (1.3-4.6); Total Protein 7.6 g/dL (6.6-8.7)
== END 2025-07-06 10:55 | disposition home or self-care (01) ==
LOC: LAB 10:56
PROVIDERS: PCP Nurse Practitioner Family; Visit Provider Internal Medicine Rheumatology
DX: Z79.899 Other long term (current) drug therapy (principal)
CPT/HCPCS: 36415; 80076; 82565; 85025; 85651; 86140; 86480

== ENCOUNTER → 2025-10-16 15:09 | Outpatient (BNVA) | payer OTHER, SELFPAY | PROVIDERS: PCP Nurse Practitioner Family; Visit Provider Internal Medicine Rheumatology | DX: Z79.899 Other long term (current) drug therapy (principal) | CPT/HCPCS: 36415; 80076; 82565; 85025; 85651; 86140 ==